=== PATIENT | female | born 1955 | race Caucasian/White ===

== ENCOUNTER → 2020-08-01 10:38 | Outpatient (CLI) | payer OTHER, SELFPAY ==
--- NOTE | ~2020-08-01 | DEXA_ITS ---
Bone Density Report Name: Rosamaria Ortez Age: 65 Sex: Female Ethnicity: White Date of : 1955 Indication: osteopenia; monitoring treatment; postmenopausal Referring Provider: Komal, Nanette Study: Bone densitometry was performed. Exam Date: August 01, 2020 Accession number: [id number] Bone Density: Region BMD T-score Z-score Classification AP Spine (L1-L4) 0.920 -1.2 0.5 Osteopenia Femoral Neck (Left) 0.628 -2.0 -0.6 Osteopenia Total Hip (Left) 0.791 -1.2 -0.1 Osteopenia Femoral Neck (Right) 0.614 -2.1 -0.7 Osteopenia Total Hip (Right) 0.731 -1.7 -0.6 Osteopenia Total Hip Mean 0.761 -1.5 -0.4 Osteopenia World Health Organization criteria for BMD impression classify patients as: Normal (T-score at or above -1.0), Osteopenia (T-score between -1.0 and -2.5), or Osteoporosis (T-score at or below -2.5). 10-year Fracture Risk: FRAX not reported because: Treated for osteoporosis Previous Exams: Region Exam Age BMD T-score BMD Change BMD Change Date g/cm2 vs Baseline vs Previous AP Spine(L1-L4) 08/01/2020 65 0.920 -1.2 -0.027* -0.023* 12/27/2017 62 0.943 -0.9 -0.005 -0.005 12/12/2012 57 0.947 -0.9 Total Hip(Left) 08/01/2020 65 0.791 -1.2 0.045* -0.004 12/27/2017 62 0.795 -1.2 0.048* 0.048* 12/12/2012 57 0.746 -1.6 Total Hip(Right) 08/01/2020 65 0.731 -1.7 0.028* 0.014 12/27/2017 62 0.716 -1.9 0.013 0.013 12/12/2012 57 0.703 -2.0 *Denotes significance at 95% confidence level, LSC for AP Spine = 0.022 g/cm2, LSC for Total Hip = 0.027 g/cm2 Clinical Information Provided by Patient: Is being treated for osteoporosis Has used the following medications: HRT (i.e. estrogen/hormone therapy), Vitamin D, MTV Patient maximum height was 69.25 Menopause Age: 52 No regular weight bearing exercise Drinks caffeinated beverages Onset of menses at age 13 Number of children 2 Impression: The patient has low bone mass, based on the Right Femoral Neck T-score. The BMD for the AP Spine(L1-L4) decreased, changing by -0.023 since the last DXA exam. Discussion: SIGNIFICANT BONE LOSS OBSERVED. Adherence to therapy (including calcium and vitamin D intake) should be assessed. If compliance is not a factor, review management and exclusion of secondary causes of bone loss. It is important to ask patients whether they are taki
--- NOTE | ~2020-08-01 | MM_ITS ---
EXAMINATION: MM screening [facility] BI w nhan HISTORY: Screening mammogram TECHNIQUE: Craniocaudal and mediolateral oblique 3-D tomosynthesis images were obtained and synthetic 2-D images were generated. CAD analysis was submitted and interpreted. COMPARISON: 01/10/2018, 12/26/2016, 12/25/2015 BREAST PARENCHYMAL COMPOSITION: There are scattered areas of fibroglandular density. FINDINGS: There is no evidence of suspicious mass, calcification, or architectural distortion to sugg est malignancy in either breast. There has been no suspicious interval change. IMPRESSION: 1. No mammographic evidence of malignancy. 2. Recommend routine screening mammography in one year. BI-RADS Category 1: Negative Reviewed, dictated and finalized at location A. MACHINE OPERATOR
== END ==
PROVIDERS: Visit Provider Nurse Practitioner
DX: Z12.31 Encounter for screening mammogram for malignant neoplasm of breast (principal); Z13.820 Encounter for screening for osteoporosis; M85.852 Other specified disorders of bone density and structure, left thigh; M85.851 Other specified disorders of bone density and structure, right thigh
CPT/HCPCS: 77063; 77067; 77080

== ENCOUNTER 2024-09-24 02:10 | Day surgery (SDC) | payer MEDICARE, OTHER, SELFPAY ==
[2024-09-16 10:43] VITALS: BMI 30.4
--- OUTSIDE RECORDS SUMMARY | 2024-09-24 02:14 | XMS_ITS | Clinical Summary ---
Author Organization [facility] Address [address] [place] [address] Care Team Providers Care Hardware Technician Name Role Phone Pipo Lopez MD Primary Care Provider [phone] Source Comments [facility],non-owned Affiliates and Associated Physician Practices is amultiple site organization consisting of ambulatory clinics and hospital sitesin [place], [place], [place] and [place]. This disclosure is being madepursuant to the Care Everywhere program and may not contain all information available regarding this patient. Last updated 18.[employer] Allergies Active Allergy Reactions Criticality Noted Date Comments Cefaclor 12/09/2016 Cephalexin 12/09/2016 Medications * Be aware that medications may not be up to date on this document. Alwaysverify current medications with the patient. AmLODIPine Besylate (NORVASC PO) Active SERTRALINE HCL PO Active buPROPion (WELLBUTRIN) 75 MG tablet Take 75 mg by mouth 2 times daily Active estriol-estradio l-progesterone (BIESTROGEN WITH PROGESTERONE) 1.5-75 mg capsule Take 1 Cap by mouth once daily Active Social History Tobacco Use Types Packs/Day Years Used Date Smoking Tobacco: Never Smokeless Tobacco: Never Comments No Sex and Gender Information Value Date Recorded Sex Assigned at Not on file Legal Sex Female 10:40 AM CDT Gender Identity Not on file Sexual Orientation Not on file Last Filed Vital Signs Vital Sign Reading Time Taken Comments Blood Pressure 112/66 12/09/2016 10:55 AM CDT Pulse 84 12/09/2016 10:55 AM CDT Temperature 37.2 C (98.9 F) 12/09/2016 10:55 AM CDT Respiratory Rate 16 12/09/2016 10:55 AM CDT Oxygen Saturation 97% 12/09/2016 10:55 AM CDT Inhaled Oxygen Concentration - - Weight 72.6 kg (160 lb) 12/09/2016 10:55 AM CDT Height 172.7 cm (5' 8 ) 12/09/2016 10:55 AM CDT Body Mass Index 24.33 12/09/2016 10:55 AM CDT Plan of Treatment Health Maintenance Due Date Last Done Comments BONE DENSITY TESTING 1955 COLOGUARD (AGES 45-75) - COL ON CA SCREENING 1955 COLON MONITORING 1955 COLONOSCOPY - COLON CA SCREENING 1955 CT COLONOGRAPHY - COLON CA SCREENING 1955 Colorectal Cancer Screening 1955 FIT - COLON CA SCREENING 1955 FLEX SIG - COLON CA SCREENING 1955 LIPID TESTING 1955 MAMMOGRAM 1955 HEPATITIS C SCREENING 03/24/1975 DTAP/TDAP/TD VACCINES (1 - Tdap) 1976 PNEUMOCOCCAL VACCINE 50+ (1 of 1 - PCV) 2007 ZOSTER VACCINE (1 of 2) 2007 COVID-19 VACCINE ( - 2023-2 5 season) 2024 DEPRESSION SCREENING 06/12/2024 INFLUENZA VACCINE (Season Ended) 2025 Respiratory Syncytial Virus (RSV) Vaccine Pt: or over 60 yrs (1 - 1-dose 75+ series) 2032 HEPATITIS B VACCINE Aged Out No longe r eligible based on patient's age to complete this topic HIB VACCINE Aged Out No longer eligi ble based on patient's age to complete this topic HPV VACCINE Aged Out No longer eligi ble based on patient's age to complete this topic MENINGOCOCCAL (Group B) VACC INE SHARED DECISION-MAKING Aged Out No longer eligibl e based on patient's age to complete this topic MENINGOCOCCAL GROUPS A/C/Y/W VACCINE Aged Out No longer eligible b ased on patient's age to complete this topic Insurance [address] [address] Care Teams Hardware Technician Relationship Specialty Start Date End Date Pipo Lopez MD [address] [facility] [address] [place] [address] PCP - General Family Medicine 12/09/16
--- OUTSIDE RECORDS SUMMARY | 2024-09-24 02:14 | XMS_ITS | Clinical Summary ---
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 Gender Identity Not on file Sexual Orientation Not on file Plan of Treatment Health Maintenance Due Date Last Done Comments Colorectal Cancer Screening Colonoscopy (10 Years) 1955 Hepatitis C 1975 DTaP, Tdap and Td Vaccines ( 1 - Tdap) 1976 Mammogram Screening 1997 Zoster Vaccines (1 of 2) 2007 Dexa Scan (General) 2022 Pneumococcal Vaccine: 50+ Ye ars (1 of 1 - PCV) 2022 COVID-19 Vaccine ( - 2023-2 5 season) 2024 RSV Immunization or 60+ Years (1 - 1-dose 75+ series) 2032 Meningococcal B Vaccine Aged Out No l onger eligible based on patient's age to complete this topic Meningococcal Vaccine Aged Out No celestino jhoan eligible based on patient's age to complete this topic RSV Immunizations Under 20 Months Aged Out No longer eligible based on patient's age to complete this topic
--- OUTSIDE RECORDS SUMMARY | 2024-09-24 02:14 | XMS_ITS | CONTINUITY OF CARE DOCUMENT ---
Author Name silva ascencio Address Unknown Organization [facility] Address [address] [place] [address] Phone [phone] Care Team Providers Care Architectural Designer Name Role Phone Aric HERNANDEZ, Angela Unavailable ELIZ SWAIN MD Unavailable ELIZ SWAIN MD Unavailable PROBLEMS Condition Status Date Provider Notes Family history of cardiovascular disease active 01/13 Nika Saini Chest pain nl stress test active Angela shah MD GERD active Angela Corbett MD Depression active Angela Corbett MD Migraine active Angela Corbett MD HTN essential active Angela Corbett MD ENCOUNTERS Date Type Provider Location Encounter Diag nosis - In-person encounter Office Visit Angela Corbett MD [facility] - In-person encounter Office Visit Angela Corbett MD [facility] - In-person encounter Office Visit Angela Corbett MD [facility] HTN essential - In-person encounter Office Visit Angela Corbett MD [facility] - In-person encounter Office Visit Angela Corbett MD [facility] Chest pain nl stress testMigraine - In-person encounter Office Visit Angela Corbett MD [facility] GERDDepression VITAL SIGNS Date Observation Value Provider Body Mass Index (Ratio) 30.41 kg/m2 Santosh Corbett MD blood pressure, diastolic 80 mm[Hg] Li nkLogic blood pressure, systolic 144 mm[Hg] Madiha kLogic blood pressure, cuff size regular Ke rri Gruenenfelder blood pressure, diastolic 80 mm[Hg] Ke rri Gruenenfelder blood pressure, systolic 144 mm[Hg] Ker ri Gruenenfelder oxygen saturation, oximetry 97 % Cass Gruenenfelder pulse rate 79 /min Cass Gruenenfe er weight E&M 200 [lb_av] Cass Gruenenfe er height E&M 68 [in_i] Cass Gruenenfe er Body Mass Index (Ratio) 27.21 kg/m2 Santosh Corbett MD blood pressure, cuff size regular Ke rri Gruenenfelder blood pressure, diastolic 78 mm[Hg] Ke rri Gruenenfelder blood pressure, systolic 116 mm[Hg] Ker ri Gruenenfeldteresita oxygen saturation, oximetry 98 % Cass Gruenenfelder respiratory rate E&M 20 /min Cass G selinenececilia pulse rate 85 /min Cass Gruenenfe er weight E&M 179 [lb_av] Cass Gruenenfe er height E&M 68 [in_i] Cass Gruenenfe er Body Mass Index (Ratio) 26.70 kg/m2 Santosh Corbett MD blood pressure, cuff size regular Cy bola Perdomo blood pressure, diastolic 68 mm[Hg] Sridhar Perdomo blood pressure, systolic 122 mm[Hg] Milagros Perdomo oxygen saturation, oximetry 97 % Ora Perdomo respiratory rate E&M 16 /min Ora Perdomo pulse rate 80 /min Ora Ulrich l weight E&M 175.6 [lb_av] Ora Sullivan ll height E&M 68 [in_i] Ora Ulrich l Body Mass Index (Ratio) 24.48 kg/m2 Santosh Corbett MD blood pressure, cuff size regular Monica mas Hager blood pressure, diastolic 70 mm[Hg] Monica mas Hager blood pressure, systolic 106 mm[Hg] Tiarra emery Madan oxygen saturation, oximetry 97 % Porsha Hager respiratory rate E&M 16 /min Porsha Hager pulse rate 77 /min Porsha Hager weight E&M 161 [lb_av] Porsha Hager height E&M 68 [in_i] Porsha Hager blood pressure, diastolic 70 mm[Hg] Vipul Matias blood pressure, systolic 118 mm[Hg] Kalyn Matias pulse rate 78 /min Radha miranda oxygen saturation, oximetry 98 % Radha Matias respiratory rate E&M 16 /min Arianna Matias Body Mass Index (Ratio) 24.93 kg/m2 Joyce Matias weight E&M 164 [lb_av] Radha miranda blood pressure, diastolic 80 mm[Hg] Me lary Ridley blood pressure, systolic 118 mm[Hg] Elvie Ridley pulse rate 78 /min Michelle Ridley oxygen saturation, oximetry 98 % Michelle Ridley respiratory rate E&M 15 /min Michelle Ridley Body Mass Index (Ratio) 24.63 kg/m2 Ratna Ridley weight E&M 162 [lb_av] Michelle Ridley height E&M 68 [in_i] Michelle Ridley ALLERGIES Allergy Name Onset Date Reaction Criticality Status BLISTEX Low Criticality active KEFLEX Low Criticality active CECLOR Low Criticality active RESULTS Date Observation Value Provider Reference Range Interpretation Location 1 hemoglobin A1C, blood, as % of total hemoglobin 5.5 % [facility] 4.8-5.6 1 lipoprotein, beta, serum, point, quantitative, calculated 130 mg/dL [facility] 0-99 High 1 very low density lipoproteins 35 mg/dL [facility] 5-40 1 HDL cholesterol, serum 42 mg/dL [facility] >39 1 triglyceride, serum, random 176 mg/dL [facility] 0-149 High 1 cholesterol, serum 207 mg/dL [facility] 100-199 High 1 alanine aminotransferase (SGPT), serum 12 1/L [facility] 0-32 1 aspartate aminotransferase (SGOT), serum 13 1/L [facility] 0-40 1 alkaline phosphatase, serum 76 1/L [facility] 39-117 1 bilirubin, serum, total 0.6 mg/dL [facility] 0.0-1.2 1 albumin/globulin ratio, serum 1.5 [facility] 1.2-2.2 1 globulin, serum 2.9 [facility] 1.5-4.5 1 albumin, serum 4.4 g/dL [facility] 3.6-4.8 1 protein, total, serum 7.3 g/dL [facility] 6.0-8.5 1 calcium, serum 9.1 mg/dL [facility] 8.7-10.3 1 carbon dioxide, venous blood 21 mmol/L [facility] 20-29 1 chloride, serum 103 mmol/L [facility] 96-106 1 potassium, serum 4.1 mmol/L [facility] 3.5-5.2 1 sodium, serum 140 mmol/L [facility] 941-520 1147/08/0 1 urea nitrogen/creatinine ratio, serum 17 [facility] 12-28 1 eGFR if 89 mL/min/{1 .73_m2} [facility] >59 1 eGFR if not 77 mL/min/{1 .73_m2} [facility] >59 1 creatinine, serum 0.83 mg/dL [facility] 0.57-1.00 1 urea nitrogen, blood 14 mg/dL [facility] 8-27 1 blood glucose, random 93 mg/dL [facility] 65-99 1 basophil count, absolute 0.0 x10E3/uL [facility] 0.0-0.2 1 Eosinophil Absolute Count 0.2 X10E3/UL [facility] 0.0-0.4 1 monocyte count, blood, automated 0.3 X10E3/UL [facility] 0.1-0.9 1 lymphocyte count, blood, automated 1.6 X10E3/UL [facility] 0.7-3.1 1 Absolute Neutrophils 3.4 X10E3/UL [facility] 1.4-7.0 1 basophils as percent of blood leukocytes 1 % [facility] Not Estab. 1 eosinophils as percent of blood leukocytes 3 % [facility] Not Estab. 1 monocytes as percent of blood leukocytes 5 % [facility] Not Estab. 1 lymphocytes as percent of blood leukocytes 28 % [facility] Not Estab. 1 neutrophils as percent of blood leukocytes 63 % [facility] Not Estab. 1 platelet count 235 X10E3/UL [facility] 734-010 3819/08/0 1 red blood cell distribution width 13.5 % [facility] 12.3-15.4 1 mean corpuscular hemoglobin concentration, RBC 34.6 G/DL [facility] 31.5-35.7 1 mean corpuscular hemoglobin, RBC 32.3 pg [facility] 26.6-33.0 1 mean corpuscular volume, RBC 93 fL [facility] 79-97 1 hematocrit, blood 40.7 % [facility] 34.0-46.6 1 hemoglobin, blood 14.1 g/dL [facility] 11.1-15.9 1 erythrocyte (RBC) count 4.37 X10E6/UL [facility] 3.77-5.28 1 leukocyte count, blood 5.5 [facility] HISTORY OF MEDICATION USE Medication Status Instructions Dates Provider Indications Com ments Ubrelvy 100 mg tablet active TAKE ONE TABLET BY MOUTH AT THE START OF MIGRAINE, MAY REPEAT IN 2 HOURS IF NO RELIEF. NO MORE THAN 2 TABS PER 24 HOURS Cass Jenkins buspirone 10 mg tablet active TAKE 1 TABLET BY MOUTH TWICE DAILY Cass Jenkins esomeprazole magnesium 40 mg capsule,delayed release(DR/EC) active TAKE 1 CAPSULE BY MOUTH ONCE DAILY NEEDED Cass Jenkins valacyclovir 1 gram tablet active TAKE 2 TABLETS BY MOUTH EVERY 12 HOURS FOR 2 DAYS NEEDED Cass Jenkins medroxyprogesterone 2.5 mg tablet active TAKE 1 TABLET BY MOUTH ONCE DAILY Cass Jenkins rosuvastatin 40 mg tablet active TAKE 1 TABLET BY MOUTH ONCE DAILY Cass Jenkins Lipitor 10 mg tablet completed 1 tablet once a day 02/19 - 09/10 Cass Jenkins VITAMIN D TABLET completed Take 2 twice a day 02/19 - 09/10 Cass Jenkins bupropion HCl 150 mg tablet sustained-release 12 hr completed Take 1 tablet once a day 12/18 - 09/10 Cass Jenkins amlodipine 2.5 mg tablet active Take 1 tablet by mouth once a day Cass Jenkins AMLODIPINE BESYLATE 2.5 MG ORAL TABLET completed take one tab daily 02/08 - Angela Corbett MD changed from Ensenda d/t insurance preference OMEPRAZOLE 20 MG ORAL CAPSULE DELAYED RELEASE completed po daily 02/08 - 01/06 Radhajacinta Matias alprazolam 0.25 mg tablet active as needed 02/08 Cass Kuoalanateresita Ames's Extra Strength 500-325-65 mg powder in packet completed as needed 02/08 - 09/10 Cass Gregory IMITREX TABLET completed as needed 02/08 - 12/18 Orabenny Perdomo MEDROXYPROGESTERONE ACETATE TABLET completed once a day 02/08 - 09/10 Cass Gregory estradiol 1 mg tablet active once a day 02/08 Cass Gregory Celexa 40 mg tablet active once a day 02/08 Cass Gregory SOCIAL HISTORY Date Observation Value Provider smoking status Never smoker Antoine Hendrickson social history E&M S moking History: Alirio garrett has never smoked. Angela Corbett MD social history reviewed E&M revi ewed - no changes required Angela Corbett MD smoking status Never smoker Cass cerda number of grandchildren Angela Corbett MD T collins Corbett MD social history E&M S moking History: Alirio garrett has never smoked. Angela Corbett MD social history reviewed E&M revi ewed - no changes required Angela Corbett MD smoking status Never smoker Ora curran social history reviewed E&M revi ewed - no changes required Angela Corbett MD smoking status Never smoker Porsha Hager social history reviewed E&M revi ewed - no changes required Angela Corbett MD smoking status Never smoker Radha Quiros social history reviewed E&M revi ewed - no changes required Angela Corbett MD smoking status Never smoker Michelle workman FAMILY HISTORY Family Member Condition Mother Family History Unkno wn Father Family History of Co ronary Artery Disease: INSURANCE PROVIDERS Payer name Policy type / Coverage type Gardenia red libertarian ID [employer] MEDICARE [place] PPO Medicare [id number] ADVANCE DIRECTIVES Name Date DISCUSSED - NO DECISION MADE TREATMENT PLAN Date Name Performer Cardiology: H er updated medication list for this problem includes: Esomeprazole Magnesium 40 Mg Capsule,delayed Release(dr/ec) (Esomeprazole magnesium) ..... Take 1 capsule by mouth once daily as needed Angela Corbett MD Cardiology: O rders: S tress Exercise Cardiolite (CPT-31200) C T, Coronary Calcium Score (CPT-11677) Angela Corbett MD Cardiology: B P today: 144/80 P rior BP: 116/78 (02/19/2018) Labs Reviewed: C reat: 0.83 (01/10/2018) C hol: 207 (01/10/2018) HDL: 42 (01/10/2018) LDL: 130 (01/10/2018) T (01/10/2018) Her updated medication list for this problem includes: Amlodipine 2.5 Mg Tablet (Amlodipine) ..... Take 1 tablet by mouth once a day Orders: E KG (CPT-33289) S tress Exercise Cardiolite (CPT-06587) C T, Coronary Calcium Score (CPT-21408) Angela Corbett MD Cardiology: O rders: S tress Exercise Cardiolite (CPT-13862) C T, Coronary Calcium Score (CPT-43148) Her updated medication list for this problem includes: Amlodipine 2.5 Mg Tablet (Amlodipine) ..... Take 1 tablet by mouth once a day Angela Corbett MD Cardiology Follow u p Angela shah MD Cardiology Follow u p Angela shah MD Cardiology Follow u p Angela shah MD Cardiology Follow u p Calvinichapin shah MD Cardiology follow up Angela greene MD Cardiology follow up Angela greene MD Cardiology follow up Angela greene MD Cardiology Follow up Angela greene MD Cardiology Follow up Angela greene MD Cardiology Follow up Angela greene MD Cardiology Follow up Angela greene MD Cardiology Angela Corbett MD Cardiology Angela Corbett MD Cardiology Angela Corbett MD Cardiology Angela Corbett MD Cardiology Angela Corbett MD Cardiology Angela Corbett MD Date Name CT, Coronary Calcium Score Stress Exercise Card iolite STR - Nuclear HISTORY OF PROCEDURES Procedure Date Procedure Name Provider Procedure Notes S tatus EKG Angela Corbett MD completed Cardiolite, 2 units Angela oCrbett MD completed SPECT Images Angela Corbett MD complet ed Stress EKG Darian Delgado MD completed EKG Angela Corbett MD completed EKG Angela Corbett MD completed SNOMED-CT: 40299715 Physical Exam, Performed: Pulse Exam of Foot Angela Corbett MD completed SNOMED-CT: 561057457 948411 Current Medications Documented Angela Corbett MD completed SNOMED-CT: 37116539 Physical Exam, Performed: Pulse Exam of Foot Angela Corbett MD completed SNOMED-CT: 232482253 862181 Current Medications Documented Angela Corbett MD completed SNOMED-CT: 50710822 Physical Exam, Performed: Pulse Exam of Foot Angela Corbett MD completed EKG Angela Corbett MD completed SNOMED-CT: 488254473 641044 Current Medications Documented Angela Corbett MD completed Stress EKG Darian Delgado MD completed Cardiolite, 2 units Angela Corbett MD completed SPECT Images Angela Corbett MD complet ed
--- OUTSIDE RECORDS SUMMARY | 2024-09-24 02:14 | XMS_ITS | Continuity of Care Document ---
Author Organization [facility] Address [address] [place] [address] Phone Care Team Providers Care Phlebotomy Coordinator Name Role Phone Pipo Lopez MD Unavailable Unavailable Allergies, Adverse Reactions, Alerts Substance Reaction Status Criticality phenol Active No Information petrolatum,hydrophilic Active No In formation padimate O Active No Information oxybenzone Active No Information octyl salicylate Active No Informat ion octinoxate Active No Information meradimate Active No Information menthol Active No Information homosalate Active No Information HERBAL COMPLEX NO.57 Active No Info rmation dimethicone Active No Information chamomile flower Active No Informat ion camphor Active No Information ALOE VERA EXTRACT Active No Informa tion allantoin Active No Information CEPHALEXIN MONOHYDRATE Active No In formation cefaclor Active No Information Medications Medication Instructions Dosage Effective Dates (start - stop) Status Comments acyclovir 400 mg tablet take 1 Tablet by oral route 3 times every day 400 MG - Active Celexa 40 mg tablet take 1 tablet (40MG) by oral route every day 40 MG - Active Procedures Procedure Date PREV VISIT, EST, AGE 40-64 OFFICE/OUTPATIENT VISIT, EST OFFICE/OUTPATIENT VISIT, EST PREV VISIT, NEW, AGE 40-64 Advance Directives Directive Yes / No Effective Date File Name No Information Encounters Encounter Description Practice Location Reason(s) For Visit Diagnoses Date Provider Providers Copied on Encounter [facility], [address], [place], [id number], [place] tel:[phone] [facility] No Information 0-201 6 John Chung [address], [address], [place], [place], [address] , [place]. tel:[phone] [facility], [address], [place], [place], [address], [place] [phone] [facility] No Information 5 John Foss. [address], [place], [place], [address] , [place]. tel:[phone] PREV VISIT, EST, AGE 40-64 [facility], [address], [place], [place], [address], [place] [phone] [facility] PHysical (chief complaint) ROUTINE MEDICAL EXAM 5 John Chung [address], [place], [place], [address] , [place]. tel:[phone] Referring Provider: Ana Coreas [address], [place], [place], [address]. tel:[phone] OFFICE/OUTPA TIENT VISIT, EST [facility], [address], [place], [place], [address], [place] [phone] [facility] jaw pain (chief complaint) headache (chief complaint) cold sore (chief complaint) HeadacheGeneralized anxiety disorderHerpes simplex without mention of complication 4 John Chung [address], [place], [place], [address] , [place]. tel:[phone] Referring Provider: Ana Coreas [address], [place], [place], [address]. tel:[phone] OFFICE/OUTPA TIENT VISIT, EST [facility], [address], [place], [place], [address], [place] tel:[phone] [facility] anxiety (chief complaint) headache (chief complaint) osteopenia (chief complaint) mole on back (chief complaint) DepressionHeadacheD isorder of bone and cartilage, unspecifiedNevus, non-neoplastic 4 John Perez [address], [place], [place], [address] , [place]. [phone] Referring Provider: Pipo Lopez, [address], [place], [place], [address]. tel:[phone] PREV VISIT, NEW, AGE 40-64 [facility], [address], [place], [place], [address], [place] tel:[phone] [facility] Medicine Physical (chief complaint) Routine Medical ExamRoutine Medical Exam 4 John Foss. [address], [place], [place], [address] , [place]. [phone] Family History Family Member Type Diagnosis Age At Onset Brother Problem (finding) primary lateral scerosi s Father Problem (finding) Hypertension Father Problem (finding) Coronary artery disease Mother Problem (finding) Hypertension Payers Payer name Insurance type Covered green party ID Authoriza tion(s) No Information Social History Type Description Quantity Date Captured Comments Alcohol Use Details Unknown Caffeine Use Details Unknown Tobacco Use Status No Information Smoking Status No Information Sex Female Chief Complaint And Reason For Visit No Information Plan Of Treatment Date Type Action Status Goal Tdap. Due on due Goal Td vaccine. Due on 15 due Goal Sigmoidoscopy. Due on due Goal Pap/HPV testing. Due on due Goal Influenza vaccine. Due on due Goal FOBT. Due on due Goal Depression screening. Due on due Goal Colonoscopy. Due on 015 due Goal Mammogram. Due on 5 due Referral Ordered: MRI BRAIN W/O & W/DYE ordered Referral Ordered: CARDIOVASCULAR STRESS TEST ordered History Of Present Illness Encounter Date Complaint History Of Prese nt Illness PHysical Pt needs annual physical. Pt has chronic pressure headache. Pt denies any photophobia or nausea with headache. Pt has headache once every 2-3 weeks. Pt does not think amitriptyline helps so she stopped it. Pt was given imitrex which helps sometimes Pt was given imitrex by [employer]. Pt had noramal MRI of brain last year. Pt has intermittent fever blisters and she wants valtrex. Pt denies any active infection. 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 PT denies any suicidal thought Instructions Date Instruction Additional Infor raheem No Information Assessments Type Assessment Date No Information
--- OUTSIDE RECORDS SUMMARY | 2024-09-24 02:14 | XMS_ITS | Continuity of Care Document ---
Author Organization [facility] Address [address] [facility] [place] [address] Phone Care Team Providers Care Fine Craft Artist Name Role Phone Edgar OD, Steve Unavailable Unavailable Procedures Procedure Date Eye Exam & Treatment Refraction No Charge Contact Lens Check No Charge Contact Lens Check Eye Exam & Treatment Refraction Eye Exam, New Patient Advance Directives Directive Yes / No Effective Date File Name No Information Encounters Encounter Description Practice Location Reason(s) For Visit Diagnoses Date Provider Providers Copied on Encounter [facility], [address] [place] [address] [address], [place], [place], [address], tel:[phone] [facility] No Information Apr-0 8-201 0 Edgar OD Steve. [address] , [address], [place], [place], [facility], [place]. tel:[phone] [facility], [address] [place] [address] [address], [place], [place], [address], [place] tel:[phone] [facility] No Information Oct-0 8-200 8 Edgar OD Steve. [address] , [address], [place], [place], [facility], [place]. tel:[phone] [facility], [address] [place] [address] [address], [place], [place], [address], [place] tel:[phone] [facility] No Information Oct-0 1-200 8 Edgar OD Steve. [address] [facility] , [address], [place], [address], [place]. tel:[phone] [facility], [address] [place] [address] [address], [place], [place], [address], tel:[phone] [facility] No Information Sep-1 0-200 8 Edgar OD Steve. [address] [facility] , [address], [place], [place], [facility], [place]. tel:[phone] [facility], [address], [place], [place], [address], tel:[phone] [facility] No Information Aug-0 2-200 7 Edgar OD Steve. [facility] [facility] , [address], [place], [address], [place]. tel:[phone] Family History Family Member Type Diagnosis Age At Onset No Information Payers Payer name Insurance type Covered libertarian ID Maranda soto(s) Medicaid [facility] [id number] Social History Type Description Quantity Date Captured Comments Sex Female Smoking Status No Information Chief Complaint And Reason For Visit No Information Reason For Referral Reason For Referral No Information History Of Present Illness Encounter Date Complaint History Of Prese nt Illness No Information Functional Status Date Functional Assessmen t No Information Instructions Date Instruction Additional Infor mation No Information Assessments Type Assessment Date No Information Patient Care Teams Name Effective Dates (start - stop) Status Members No Information
--- OUTSIDE RECORDS SUMMARY | 2024-09-24 02:15 | XMS_ITS | Data Portability ---
Author Organization [place] - [facility] [employer], Main Office Address [address] [place] [address] Assessment Encounter Date Assessment Date Assessment LastModified by Organization Details LastModified Time 10/03/2022 10/03/2022 Cscope- in 2018 at [place], normal- repeat 01/2028 [facility]- PREHEMMER- Genna Mammogram/DEXA- with PREHEMMER Call office if worse, ER if life threatening illness RTC 4 months She voices understanding of plan and agrees [email or web address] Not available 10/01/2022 21:29:29 02/07/2023 02/07/2023 Cscope- in 2018 at [place], normal- repeat 01/2028 [facility]- PREHEMMER- Genna Mammogram/DEXA- with PREHEMMER Call office if worse, ER if life threatening illness RTC 6 months and PRN- annual physical due end of May/early Jun She voices understanding of plan and agrees [email or web address] Not available 02/07/2023 17:01:20 02/27/2024 02/27/2024 08/23/2023: VIT D 23.1 Gluc 109 TG 183 MCV 99.8 Not available 02/25/2024 17:19:55 08/20/2024 08/20/2024 08/23/2023: VIT D 23.1 Gluc 109 TG 183 MCV 99.8 04/03/2024: Gluc 118 TG 166 MCV 99.1 Not available 08/20/2024 10:37:46 Plan of Treatment Reminders Order Date Submit Date Provider Last Modified By Organization Details Last Modified Time Details Appointments Any 15 2024 09:15A Louise love MD Not available Not available Not available Lab lipid panel, serum 2024 025 [facility] (Lab), [address] [place], [address], 08/22/2024 12:37:19 CMP, serum or plasma 2024 025 [facility] (Lab), [address] [place], [address], 08/22/2024 12:37:25 CBC w/ auto diff 2024 025 [facility] (Lab), [address] [place], [address], 08/22/2024 12:35:04 TSH + free T4, serum [address] (Lab), [address] [place], [address], 08/20/2024 10:39:22 vitamin D, 25-hydrox y, total, serum [address] (Lab), [address] [place], [address], 08/20/2024 10:39:21 lipid panel, serum 2023 024 [facility] (Lab), [address] [place], [address], 04/03/2024 13:16:03 CMP, serum or plasma 2023 024 [facility] (Lab), [address] [place], [address], 04/03/2024 13:16:07 CBC w/ auto diff 2023 024 [facility] (Lab), [address] [place], [address], 04/03/2024 12:25:58 TSH + free T4, serum [address] (Lab), [address] [place], [address], 09/16/2024 12:38:41 vitamin D, 25-hydrox y, total, serum [address] (Lab), [address] [place], [address], 09/16/2024 12:38:40 lipid panel, serum 2023 024 [facility], [address] [place], [address], 08/23/2023 12:19:11 CMP, serum or plasma 2023 024 [facility], [address] [place], [address], 08/23/2023 12:19:21 CBC w/ auto diff 2023 024 [facility], [address] [place], [address], 08/23/2023 11:59:44 TSH + free T4, serum [address], [address] [place], [address], 08/29/2023 11:43:02 vitamin D, 25-hydrox y, total, serum [address], [address] [place], [address], 08/29/2023 11:43:02 Referral orthopedi c surgeon referral - Please call patient to schedule an appointme nt. Thank you. 2024 025 [email or web address] Paolo Dhaliwal MD, [address], [address], [place], [address], 09/17/2024 08:54:09 gynecolog ist referral - Please call patient to schedule an appointme nt. Thank you. 2024 025 [email or web address] Yessy Vail, [address], [address], [place], [address], Ph [phone] 09/17/2024 08:53:53 cardiolog ist referral - Please call patient to schedule an appointme nt. Thank you. 2024 025 [email or web address] [place], [address] [address], [address], [place], [address], 09/17/2024 08:53:54 podiatris t referral - Please call patient to schedule an appointme nt. Thank you. 2024 025 Jose Roberto Vaughn DPM, [address], [address], [place], [address], 09/17/2024 08:53:55 orthopedi c surgeon referral - Please call patient to schedule. 2023 024 [email or web address] 2 [facility], [address] [facility] [address], [place], [address], 04/03/2024 10:34:16 gynecolog ist referral - Please call patient to schedule. 2023 024 [email or web address] Yessy Vail, [address], [place], [address], Ph [phone] 04/01/2024 15:42:53 cardiolog ist referral - Please call patient to schedule. 2023 024 [place], [address] [address], [address], [place], [address], 09/10/2024 15:37:05 podiatris t referral - Please call patient to schedule. 2023 024 2 Jose Roberto Vaughn DPM, [address] [facility], [address], [place], [address], 04/03/2024 10:34:16 gynecolog ist referral 2023 024 [email or web address] Yessy Estrellita óGmezGenna, [address], [place], [address], Ph [phone] 03/18/2024 10:41:53 cardiolog ist referral 2023 024 [email or web address] [place], [address] [facility], [address], [place], [address], 03/18/2024 10:41:54 Procedures upper endoscopy procedure (EGD) (PROC) - Please call patient to schedule an appointme nt. Thank you. 2024 025 [email or web address] Steve Rojas MD, [address] [facility] [address], [address], [place], [address], 09/17/2024 12:39:50 colonosco py screening (PROC) - Please call patient to schedule. 2023 024 [email or web address] Steve Rojas MD, [address] [facility] [address], [address], [place], [address], 04/01/2024 15:41:52 upper endoscopy procedure (EGD) (PROC) - Please call patient to schedule. 2023 024 [email or web address] Steve Rojas MD, [address] [facility] [address], [address], [place], [address], 04/01/2024 15:42:17 upper endoscopy procedure (EGD) (PROC) 2023 024 [email or web address] Steve Rojas MD, [address] [facility] [address], [address], [place], [address], 03/18/2024 10:42:15 Surgeries None recorded. Imaging MAMMO, screening , digital, bilateral - Please call patient to schedule. 2024 025 [facility] ([facility]), [address] [place], [address], 09/16/2024 15:51:43 US, thyroid - Please call patient to schedule. 2023 024 [email or web address] [facility] ([facility]), [address] [place], [address], 2024 20:50:31 MAMMO, screening , digital, bilateral 2023 024 [email or web address] 5 [facility] ([facility]), [address] [place], [address], 10/03/2023 08:40:01 DEXA, axial skeleton 2023 024 [facility] ([facility]), [address] [place], [address], 09/15/2023 06:34:25 US, thyroid [email or web address], [address] [address], [place], [address], 07/07/2023 17:48:51 Medication Orders Ubrelvy 100 mg tablet 2024 025 [facility], [address] [place] [address], [address], 08/20/2024 10:26:17 buspirone 10 mg tablet [email or web address] [facility], [address] [place], [address], 02/27/2024 10:18:01 Nexium 40 mg capsule,d elayed release 2023 024 [facility], [address] [facility], [place], [address], 08/22/2023 17:31:09 fluticaso ne propionat e 50 mcg/actua tion nasal spray,[facility] pension 2022 023 [email or web address] [facility], [address] [place], [address], 02/07/2023 16:48:10 Patient TargetsNo targets recorded. Patient InstructionsNo instructions recorded. Reason for Referral Residential Door Installer Referral for Gy necologic examination Referring Physician: Anna Lanza Internal Medicine, Encounter Date: 08/22/2023 Carrier Driver Referral for Es sential hypertension Referring Physician: Anna Lanza Internal Medicine, Encounter Date: 08/22/2023 Residential Door Installer Referral for Gy necologic examination Please call patient to schedule. Referring Physician: Dilcia Black Medicine, Encounter Date: 02/27/2024 Carrier Driver Referral for Es sential hypertension Please call patient to schedule. Referring Physician: Anna Lanza Internal Medicine, Encounter Date: 02/27/2024 Dental Receptionist Referral for Pain in left foot Please call patient to schedule. Referring Physician: Dilcia Black Medicine, Encounter Date: 02/27/2024 Orthopedic Surgeon Referral for Pain of left knee joint Please call patient to schedule. Referring Physician: Anna Lanza Internal Medicine, Encounter Date: 02/27/2024 Residential Door Installer Referral for Gy necologic examination Please call patient to schedule an appointment. Thank you. Referring Physician: Dilcia Black Medicine, Encounter Date: 08/20/2024 Carrier Driver Referral for Es sential hypertension Please call patient to schedule an appointment. Thank you. Referring Physician: Dilcia Black Medicine, Encounter Date: 08/20/2024 Dental Receptionist Referral for Pain in left foot Please call patient to schedule an appointment. Thank you. Referring Physician: Anna Lanza, Internal Medicine, Encounter Date: 08/20/2024 Orthopedic Surgeon Referral for Pain of left knee joint Please call patient to schedule an appointment. Thank you. Referring Physician: Anna Lanza Internal Medicine, Encounter Date: 08/20/2024 Results Created Date Observation Date Name Description Value Unit Range Abnormal Flag Note LastModifiedBy Organization Detail LastModifiedTime 08/23/19 24 08/23/2023 CBC/C OMPLE TE BLD COUNT W/DIF F white blood cells 5.7 x10'3 /uL 4.2-10 .8 Not Available [facility] (Lab) [address] [place], [address], 08/23/2023 11:59:44 08/23/19 24 08/23/2023 CBC/C OMPLE TE BLD COUNT W/DIF F red blood cells 4.28 x10'6 /uL 3.80-5 .20 Not Available [facility] (Lab) [address] [place], [address], 08/23/2023 11:59:44 08/23/19 24 08/23/2023 CBC/C OMPLE TE BLD COUNT W/DIF F hemoglobin 13.8 g/dL 12.0-1 5.6 Not Available [facility] (Lab) [address] [place], [address], 08/23/2023 11:59:44 08/23/19 24 08/23/2023 CBC/C OMPLE TE BLD COUNT W/DIF F hematocrit 42.7 % 35.7-4 5.7 Not Available [facility] (Lab) [address] [place], [address], 08/23/2023 11:59:44 08/23/19 24 08/23/2023 CBC/C OMPLE TE BLD COUNT W/DIF F mean red cell volume 99.8 fL 82.0-9 9.0 high Not Available [facility] (Lab) [address] [place], [address], 08/23/2023 11:59:44 08/23/19 24 08/23/2023 CBC/C OMPLE TE BLD COUNT W/DIF F mean red cell hemoglobin 32.2 pg 27.0-3 3.0 Not Available [facility] (Lab) [address] [place], [address], 08/23/2023 11:59:44 08/23/19 24 08/23/2023 CBC/C OMPLE TE BLD COUNT W/DIF F mean RBC HGB concentratio n 32.3 g/dL 31.0-3 6.0 Not Available [facility] (Lab) [address] [place], [address], 08/23/2023 11:59:44 08/23/19 24 08/23/2023 CBC/C OMPLE TE BLD COUNT W/DIF F red cell distribution width 13.3 % 11.8-1 5.5 Not Available [facility] (Lab) [address] [place], [address], 08/23/2023 11:59:44 08/23/19 24 08/23/2023 CBC/C OMPLE TE BLD COUNT W/DIF F platelets 232 x10'3 /uL 150-40 0 Not Available [facility] (Lab) [address] [place], [address], 08/23/2023 11:59:44 08/23/19 24 08/23/2023 CBC/C OMPLE TE BLD COUNT W/DIF F mean platelet volume 10.1 fL 9.0-12 .4 Not Available [facility] (Lab) [address] [place], [address], 08/23/2023 11:59:44 08/23/19 24 08/23/2023 CBC/C OMPLE TE BLD COUNT W/DIF F neutrophils 59.2 % 39.0-7 2.0 Not Available [facility] (Lab) [address] [place], [address], 08/23/2023 11:59:44 08/23/19 24 08/23/2023 CBC/C OMPLE TE BLD COUNT W/DIF F lymphocytes 27.7 % 16.0-4 7.0 Not Available [facility] (Lab) [address] [place], [address], 08/23/2023 11:59:44 08/23/19 24 08/23/2023 CBC/C OMPLE TE BLD COUNT W/DIF F monocytes 7.1 % 5.0-12 .0 Not Available [facility] (Lab) [address] [place], [address], 08/23/2023 11:59:44 08/23/19 24 08/23/2023 CBC/C OMPLE TE BLD COUNT W/DIF F eosinophils 4.9 % 1.0-7. 0 Not Available [facility] (Lab) [address] [place], [address], 08/23/2023 11:59:44 08/23/19 24 08/23/2023 CBC/C OMPLE TE BLD COUNT W/DIF F basophils 0.9 % 0.0-2. 0 Not Available [facility] (Lab) [address] [place], [address], 08/23/2023 11:59:44 08/23/19 24 08/23/2023 CBC/C OMPLE TE BLD COUNT W/DIF F immature granulocytes 0.2 % 0.00-0 .50 Not Available [facility] (Lab) [address] [place], [address], 08/23/2023 11:59:44 08/23/19 24 08/23/2023 CBC/C OMPLE TE BLD COUNT W/DIF F neutrophils, absolute count 3.36 x10'3 /uL 1.5-8. 0 Not Available [facility] (Lab) [address] [place], [address], 08/23/2023 11:59:44 08/23/19 24 08/23/2023 CBC/C OMPLE TE BLD COUNT W/DIF F lymphocytes, absolute count 1.57 x10'3 /uL 1.07-3 .43 Not Available [facility] (Lab) [address] [place], [address], 08/23/2023 11:59:44 08/23/19 24 08/23/2023 CBC/C OMPLE TE BLD COUNT W/DIF F monocytes, absolute count 0.40 x10'3 /uL 0.29-0 .99 Not Available [facility] (Lab) [address] [place], [address], 08/23/2023 11:59:44 08/23/19 24 08/23/2023 CBC/C OMPLE TE BLD COUNT W/DIF F eosinophils, absolute count 0.28 x10'3 /uL 0.02-0 .53 Not Available [facility] (Lab) [address] [place], [address], 08/23/2023 11:59:44 08/23/19 24 08/23/2023 CBC/C OMPLE TE BLD COUNT W/DIF F basophils, absolute count 0.05 x10'3 /uL 0.01-0 .08 Not Available [facility] (Lab) [address] [place], [address], 08/23/2023 11:59:44 08/23/19 24 08/23/2023 CBC/C OMPLE TE BLD COUNT W/DIF F immature granulocytes ,absolute 0.01 x10'3 /uL 0.00-0 .05 Not Available [facility] (Lab) [address] [place], [address], 08/23/2023 11:59:44 08/23/19 24 08/23/2023 CBC/C OMPLE TE BLD COUNT W/DIF F nucleated red blood cells 0.0 % -0 Not Available [facility] (Lab) [address] [place], [address], 08/23/2023 11:59:44 08/23/19 24 08/23/2023 CBC/C OMPLE TE BLD COUNT W/DIF F NRBC# 0.00 x10'3 /uL Not Available [facility] (Lab) [address] [place], [address], 08/23/2023 11:59:44 08/23/19 24 08/23/2023 LIPID PANEL cholesterol 192 mg/dL 140-19 9 NIH ANDRESSA NSUS RECOM MENDA TION FOR IRIS STERO L: ADULT CHILD LOW RISK: <200 <170 BORDE RLINE : <200- 239 ----- HIGH RISK: >240 >200 Not Available [facility] (Lab) [address] [place], [address], 08/23/2023 12:19:11 08/23/19 24 08/23/2023 LIPID PANEL triglyceride s 183 mg/dL 0-150 high NIH ANDRESSA NSUS REPOR T RECOM MENDA TION FOR TRIGL YCERI GERALDINE: ADULT CHILD LOW RISK: <150 ----- BODER LINE: 150-1 99 ----- HIGH RISK: >200 ----- Not Available [facility] (Lab) [address] [place], [address], 08/23/2023 12:19:11 08/23/19 24 08/23/2023 LIPID PANEL HDL cholesterol 42 mg/dL 40- Not Available [facility] (Lab) [address] [place], [address], 08/23/2023 12:19:11 08/23/19 24 08/23/2023 LIPID PANEL LDL cholesterol, calculated 113 mg/dL 0-130 NIH ANDRESSA NSUS REPOR T RECOM MENDA TIONS FOR LDL: ADULT CHILD LOW RISK <130 <110 (OPTI MAL LDL) <100 ----- BORDE RLINE : 130-1 59 ----- HIGH RISK: >160 >130 A TRIGL YCERI DE RESUL T >400 INVAL IDATE S THE CALCU LATIO N FOR LDL FRACT IONAT ION - THE LDL RESUL T WILL NOT BE REPOR ABIMBOLA. Not Available [facility] (Lab) [address] [place], [address], 08/23/2023 12:19:11 08/23/19 24 08/23/2023 COMPR EHENS JENNIFER METAB OLIC PANEL sodium 140 mmol/ L 137-14 5 Not Available [facility] (Lab) [address] [place], [address], 08/23/2023 12:19:20 08/23/19 24 08/23/2023 COMPR EHENS JENNIFER METAB OLIC PANEL potassium 4.1 mmol/ L 3.5-5. 1 Not Available [facility] (Lab) [address] [place], [address], 08/23/2023 12:19:20 08/23/19 24 08/23/2023 COMPR EHENS JENNIFER METAB OLIC PANEL chloride 111 mmol/ L 98-107 high Not Available [facility] (Lab) [address] [place], [address], 08/23/2023 12:19:20 08/23/19 24 08/23/2023 COMPR EHENS JENNIFER METAB OLIC PANEL carbon dioxide 25 mmol/ L 22-30 Not Available [facility] (Lab) [address] [place], [address], 08/23/2023 12:19:20 08/23/19 24 08/23/2023 COMPR EHENS JENNIFER METAB OLIC PANEL anion gap 8.1 mmol/ L 14-22 low Not Available [facility] (Lab) [address] [place], [address], 08/23/2023 12:19:20 08/23/19 24 08/23/2023 COMPR EHENS JENNIFER METAB OLIC PANEL glucose 109 mg/dL 70-99 high Not Available [facility] (Lab) [address] [place], [address], 08/23/2023 12:19:20 08/23/19 24 08/23/2023 COMPR EHENS JENNIFER METAB OLIC PANEL BUN 16 mg/dL 8-19 Not Available [facility] (Lab) [address] [place], [address], 08/23/2023 12:19:20 08/23/19 24 08/23/2023 COMPR EHENS JENNIFER METAB OLIC PANEL creatinine 0.72 mg/dL 0.66-1 .25 Not Available [facility] (Lab) [address] [place], [address], 08/23/2023 12:19:20 08/23/19 24 08/23/2023 COMPR EHENS JENNIFER METAB OLIC PANEL GFR >60 Refer ence Range : [place] ge GFR Healt hy Adult : >60 mL/mi n/1.7 3 m2 Chron ic Kidne y Disea se: 15-60 mL/mi n/1.7 3 m2 Kidne y Failu re: <15/m L/min /1.73 m2 www.n iddk. nih.g ov The MDRD study equat ion has not been valid ated in child claudia <18 years of age; pregn ant women ; the elder ly >85 years of age; or in some racia l or ethni c subgr oups, such as Hispa nics. Outsi de the valid ated neno eters , estim ated GFR is less accur ate, requi ring clini daria judgm ent on a case- by-ca se basis . Clini daria inter preta tion for other races and ages must be made by the clini santiago. The MDRD study equat ion has not been valid ated for the evalu ation of serum creat inine relat ed to nutri sheeba l statu s or medic ation usage . For perso ns <18 years of age, a pedia tric GFR calcu lator is avail able on the [facility] websi te: https ://latosha huff.alexandru lara.o rg/pr ofess ional s/kdo qi/gf r_cal culat or Not Available [facility] (Lab) [address] [place], [address], 08/23/2023 12:19:20 08/23/19 24 08/23/2023 COMPR EHENS JENNIFER METAB OLIC PANEL alkaline phosphatase 88 U/L 38-126 Not Available [facility] (Lab) [address] [place], [address], 08/23/2023 12:19:20 08/23/19 24 08/23/2023 COMPR EHENS JENNIFER METAB OLIC PANEL alanine aminotransfe rase 20 U/L 0-35 Not Available [facility] (Lab) [address] [place], [address], 08/23/2023 12:19:20 08/23/19 24 08/23/2023 COMPR EHENS JENNIFER METAB OLIC PANEL aspartate aminotransfe rase 23 U/L 15-37 Not Available [facility] (Lab) [address] [place], [address], 08/23/2023 12:19:20 08/23/19 24 08/23/2023 COMPR EHENS JENNIFER METAB OLIC PANEL bilirubin, total 0.80 mg/dL 0.20-1 .30 Not Available [facility] (Lab) [address] [place], [address], 08/23/2023 12:19:20 08/23/19 24 08/23/2023 COMPR EHENS JENNIFER METAB OLIC PANEL calcium 9.0 mg/dL 8.4-10 .2 Not Available [facility] (Lab) [address] [place], [address], 08/23/2023 12:19:20 08/23/19 24 08/23/2023 COMPR EHENS JENNIFER METAB OLIC PANEL total protein 7.1 g/dL 6.3-8. 2 Not Available [facility] (Lab) [address] [place], [address], 08/23/2023 12:19:20 08/23/19 24 08/23/2023 COMPR EHENS JENNIFER METAB OLIC PANEL albumin 3.9 g/dL 3.0-4. 4 Not Available [facility] (Lab) [address] [place], [address], 08/23/2023 12:19:20 08/23/19 24 08/23/2023 COMPR EHENS JENNIFER METAB OLIC PANEL globulin 3.2 g/dL 2.6-4. 2 Not Available [facility] (Lab) [address] [place], [address], 08/23/2023 12:19:20 08/23/19 24 08/23/2023 COMPR EHENS JENNIFER METAB OLIC PANEL A/G ratio 1.2 ratio 1.0-2. 0 Not Available [facility] (Lab) [address] [place], [address], 08/23/2023 12:19:20 08/23/19 24 08/23/2023 VITAM IN D 25-HY DROXY [id number] 23.1 NG/mL 30-100 low Vitam in D Statu s: Defic ient: <20 ng/mL Insuf ficie nt: 20-29 ng/mL Suffi cient : 30-10 0 ng/mL Not Available [facility] (Lab) [address] [place], [address], 08/23/2023 12:21:02 08/23/19 24 08/23/2023 T4 FREE free T4 0.90 NG/dL 0.78-2 .19 Not Available [facility] (Lab) [address] [place], [address], 08/23/2023 12:30:08 08/23/1908/23/2023 TSH thyroid-stim ulating hormone 1.450 uIU/m L 0.465- 4.680 Not Available [facility] (Lab) [address] [place], [address], 08/23/2023 12:49:19 04/03/2004/03/2024 CBC/C OMPLE TE BLD COUNT W/DIF F white blood cells 6.9 x10'3 /uL 4.2-10 .8 Not Available [facility] (Lab) [address] [place], [address], 04/03/2024 12:25:58 04/03/2004/03/2024 CBC/C OMPLE TE BLD COUNT W/DIF F red blood cells 4.31 x10'6 /uL 3.80-5 .20 Not Available [facility] (Lab) [address] [place], [address], 04/03/2024 12:25:58 04/03/2004/03/2024 CBC/C OMPLE TE BLD COUNT W/DIF F hemoglobin 14.0 g/dL 12.0-1 5.6 Not Available [facility] (Lab) [address] [place], [address], 04/03/2024 12:25:58 04/03/2004/03/2024 CBC/C OMPLE TE BLD COUNT W/DIF F hematocrit 42.7 % 35.7-4 5.7 Not Available [facility] (Lab) [address] [place], [address], 04/03/2024 12:25:58 04/03/2004/03/2024 CBC/C OMPLE TE BLD COUNT W/DIF F mean red cell volume 99.1 fL 82.0-9 9.0 high Not Available [facility] (Lab) [address] [place], [address], 04/03/2024 12:25:58 04/03/2004/03/2024 CBC/C OMPLE TE BLD COUNT W/DIF F mean red cell hemoglobin 32.5 pg 27.0-3 3.0 Not Available [facility] (Lab) [address] [place], [address], 04/03/2024 12:25:58 04/03/2004/03/2024 CBC/C OMPLE TE BLD COUNT W/DIF F mean RBC HGB concentratio n 32.8 g/dL 31.0-3 6.0 Not Available [facility] (Lab) [address] [place], [address], 04/03/2024 12:25:58 04/03/2004/03/2024 CBC/C OMPLE TE BLD COUNT W/DIF F red cell distribution width 12.9 % 11.8-1 5.5 Not Available [facility] (Lab) [address] [place], [address], 04/03/2024 12:25:58 04/03/2004/03/2024 CBC/C OMPLE TE BLD COUNT W/DIF F platelets 220 x10'3 /uL 150-40 0 Not Available [facility] (Lab) [address] [place], [address], 04/03/2024 12:25:58 04/03/2004/03/2024 CBC/C OMPLE TE BLD COUNT W/DIF F mean platelet volume 9.9 fL 9.0-12 .4 Not Available [facility] (Lab) [address] [place], [address], 04/03/2024 12:25:58 04/03/2004/03/2024 CBC/C OMPLE TE BLD COUNT W/DIF F neutrophils 67.9 % 39.0-7 2.0 Not Available [facility] (Lab) [address] [place], [address], 04/03/2024 12:25:58 04/03/2004/03/2024 CBC/C OMPLE TE BLD COUNT W/DIF F lymphocytes 20.8 % 16.0-4 7.0 Not Available [facility] (Lab) [address] [place], [address], 04/03/2024 12:25:58 04/03/2004/03/2024 CBC/C OMPLE TE BLD COUNT W/DIF F monocytes 6.0 % 5.0-12 .0 Not Available [facility] (Lab) [address] [place], [address], 04/03/2024 12:25:58 04/03/2004/03/2024 CBC/C OMPLE TE BLD COUNT W/DIF F eosinophils 4.5 % 1.0-7. 0 Not Available [facility] (Lab) [address] [place], [address], 04/03/2024 12:25:58 04/03/2004/03/2024 CBC/C OMPLE TE BLD COUNT W/DIF F basophils 0.7 % 0.0-2. 0 Not Available [facility] (Lab) [address] [place], [address], 04/03/2024 12:25:58 04/03/2004/03/2024 CBC/C OMPLE TE BLD COUNT W/DIF F immature granulocytes 0.1 % 0.00-0 .50 Not Available [facility] (Lab) [address] [place], [address], 04/03/2024 12:25:58 04/03/2004/03/2024 CBC/C OMPLE TE BLD COUNT W/DIF F neutrophils, absolute count 4.66 x10'3 /uL 1.5-8. 0 Not Available [facility] (Lab) [address] [place], [address], 04/03/2024 12:25:58 04/03/2004/03/2024 CBC/C OMPLE TE BLD COUNT W/DIF F lymphocytes, absolute count 1.43 x10'3 /uL 1.07-3 .43 Not Available [facility] (Lab) [address] [place], [address], 04/03/2024 12:25:58 04/03/2004/03/2024 CBC/C OMPLE TE BLD COUNT W/DIF F monocytes, absolute count 0.41 x10'3 /uL 0.29-0 .99 Not Available [facility] (Lab) [address] [place], [address], 04/03/2024 12:25:58 04/03/2004/03/2024 CBC/C OMPLE TE BLD COUNT W/DIF F eosinophils, absolute count 0.31 x10'3 /uL 0.02-0 .53 Not Available [facility] (Lab) [address] [place], [address], 04/03/2024 12:25:58 04/03/2004/03/2024 CBC/C OMPLE TE BLD COUNT W/DIF F basophils, absolute count 0.05 x10'3 /uL 0.01-0 .08 Not Available [facility] (Lab) [address] [place], [address], 04/03/2024 12:25:58 04/03/20 24 04/03/2024 CBC/C OMPLE TE BLD COUNT W/DIF F immature granulocytes ,absolute 0.01 x10'3 /uL 0.00-0 .05 Not Available [facility] (Lab) [address] [place], [address], 04/03/2024 12:25:58 04/03/2004/03/2024 CBC/C OMPLE TE BLD COUNT W/DIF F nucleated red blood cells 0.0 % -0 Not Available [facility] (Lab) [address] [place], [address], 04/03/2024 12:25:58 04/03/2004/03/2024 CBC/C OMPLE TE BLD COUNT W/DIF F NRBC# 0.00 x10'3 /uL Not Available [facility] (Lab) [address] [place], [address], 04/03/2024 12:25:58 04/03/2004/03/2024 LIPID PANEL cholesterol 108 mg/dL 140-19 9 low NIH ANDRESSA NSUS RECOM MENDA TION FOR IRIS STERO L: ADULT CHILD LOW RISK: <200 <170 BORDE RLINE : <200- 239 ----- HIGH RISK: >240 >200 Not Available [facility] (Lab) [address] [place], [address], 04/03/2024 13:16:03 04/03/2004/03/2024 LIPID PANEL triglyceride s 166 mg/dL 0-150 high NIH ANDRESSA NSUS REPOR T RECOM MENDA TION FOR TRIGL YCERI GERALDINE: ADULT CHILD LOW RISK: <150 ----- BODER LINE: 150-1 99 ----- HIGH RISK: >200 ----- Not Available [facility] (Lab) [address] [place], [address], 04/03/2024 13:16:03 04/03/2004/03/2024 LIPID PANEL HDL cholesterol 41 mg/dL 40- Not Available [facility] (Lab) [address] [place], [address], 04/03/2024 13:16:03 04/03/2004/03/2024 LIPID PANEL LDL cholesterol, calculated 34 mg/dL 0-130 NIH ANDRESSA NSUS REPOR T RECOM MENDA TIONS FOR LDL: ADULT CHILD LOW RISK <130 <110 (OPTI MAL LDL) <100 ----- BORDE RLINE : 130-1 59 ----- HIGH RISK: >160 >130 A TRIGL YCERI DE RESUL T >400 INVAL IDATE S THE CALCU LATIO N FOR LDL FRACT IONAT ION - THE LDL RESUL T WILL NOT BE REPOR ABIMBOLA. Not Available [facility] (Lab) [address] [place], [address], 04/03/2024 13:16:03 04/03/2004/03/2024 COMPR EHENS JENNIFER METAB OLIC PANEL sodium 139 mmol/ L 137-14 5 Not Available [facility] (Lab) [address] [place], [address], 04/03/2024 13:16:07 04/03/2004/03/2024 COMPR EHENS JENNIFER METAB OLIC PANEL potassium 4.2 mmol/ L 3.5-5. 1 Not Available [facility] (Lab) [address] [place], [address], 04/03/2024 13:16:07 04/03/2004/03/2024 COMPR EHENS JENNIFER METAB OLIC PANEL chloride 107 mmol/ L 98-107 Not Available [facility] (Lab) [address] [place], [address], 04/03/2024 13:16:07 04/03/2004/03/2024 COMPR EHENS JENNIFER METAB OLIC PANEL carbon dioxide 22 mmol/ L 22-30 Not Available [facility] (Lab) [address] [place], [address], 04/03/2024 13:16:07 04/03/20 24 04/03/2024 COMPR EHENS JENNIFER METAB OLIC PANEL anion gap 14.2 mmol/ L 14-22 Not Available [facility] (Lab) [address] [place], [address], 04/03/2024 13:16:07 04/03/2004/03/2024 COMPR EHENS JENNIFER METAB OLIC PANEL glucose 118 mg/dL 70-99 high Not Available [facility] (Lab) [address] [place], [address], 04/03/2024 13:16:07 04/03/2004/03/2024 COMPR EHENS JENNIFER METAB OLIC PANEL BUN 13 mg/dL 8-19 Not Available [facility] (Lab) [address] [place], [address], 04/03/2024 13:16:07 04/03/20 24 04/03/2024 COMPR EHENS JENNIFER METAB OLIC PANEL creatinine 0.78 mg/dL 0.66-1 .25 Not Available [facility] (Lab) [address] [place], [address], 04/03/2024 13:16:07 04/03/2004/03/2024 COMPR EHENS JENNIFER METAB OLIC PANEL GFR >60 Refer ence Range : [place] ge GFR Healt hy Adult : >60 mL/mi n/1.7 3 m2 Chron ic Kidne y Disea se: 15-60 mL/mi n/1.7 3 m2 Kidne y Failu re: <15/m L/min /1.73 m2 www.n iddk. nih.g ov The MDRD study equat ion has not been valid ated in child claudia <18 years of age; pregn ant women ; the elder ly >85 years of age; or in some racia l or ethni c subgr oups, such as Hispa nics. Outsi de the valid ated neno eters , estim ated GFR is less accur ate, requi ring clini daria judgm ent on a case- by-ca se basis . Clini daria inter preta tion for other races and ages must be made by the clini santiago. The MDRD study equat ion has not been valid ated for the evalu ation of serum creat inine relat ed to nutri sheeba l statu s or medic ation usage . For perso ns <18 years of age, a pedia tric GFR calcu lator is avail able on the F websi te: https ://latosha w.alexandru jane.o rg/pr ofess ional s/kdo qi/gf r_cal culat or Not Available [facility] (Lab) [address] [place], [address], 04/03/2024 13:16:07 04/03/2004/03/2024 COMPR EHENS JENNIFER METAB OLIC PANEL alkaline phosphatase 86 U/L 38-126 Not Available [facility] (Lab) [address] [place], [address], 04/03/2024 13:16:07 04/03/2004/03/2024 COMPR EHENS JENNIFER METAB OLIC PANEL alanine aminotransfe rase 21 U/L 0-35 Not Available [facility] (Lab) [address] [place], [address], 04/03/2024 13:16:07 04/03/2004/03/2024 COMPR EHENS JENNIFER METAB OLIC PANEL aspartate aminotransfe rase 26 U/L 15-37 Not Available [facility] (Lab) [address] [place], [address], 04/03/2024 13:16:07 04/03/20 24 04/03/2024 COMPR EHENS JENNIFER METAB OLIC PANEL bilirubin, total 1.10 mg/dL 0.20-1 .30 Not Available [facility] (Lab) [address] [place], [address], 04/03/2024 13:16:07 04/03/20 24 04/03/2024 COMPR EHENS JENNIFER METAB OLIC PANEL calcium 9.2 mg/dL 8.4-10 .2 Not Available [facility] (Lab) [address] [place], [address], 04/03/2024 13:16:07 04/03/2004/03/2024 COMPR EHENS JENNIFER METAB OLIC PANEL total protein 6.8 g/dL 6.3-8. 2 Not Available [facility] (Lab) [address] [place], [address], 04/03/2024 13:16:07 04/03/20 24 04/03/2024 COMPR EHENS JENNIFER METAB OLIC PANEL albumin 4.1 g/dL 3.0-4. 4 Not Available [facility] (Lab) [address] [place], [address], 04/03/2024 13:16:07 04/03/2004/03/2024 COMPR EHENS JENNIFER METAB OLIC PANEL globulin 2.7 g/dL 2.6-4. 2 Not Available [facility] (Lab) [address] [place], [address], 04/03/2024 13:16:07 04/03/2004/03/2024 COMPR EHENS JENNIFER METAB OLIC PANEL A/G ratio 1.5 ratio 1.0-2. 0 Not Available [facility] (Lab) [address] [place], [address], 04/03/2024 13:16:07 04/03/2004/03/2024 VITAM IN D 25-HY DROXY vd25oh 33.0 NG/mL 30-100 Vitam in D Statu s: Defic ient: <20 ng/mL Insuf ficie nt: 20-29 ng/mL Suffi cient : 30-10 0 ng/mL Not Available [facility] (Lab) [address] [place], [address], 04/03/2024 13:20:15 04/03/20 24 04/03/2024 T4 FREE free T4 0.78 NG/dL 0.78-2 .19 Not Available [facility] (Lab) [address] [place], [address], 04/03/2024 13:48:36 04/03/20 24 04/03/2024 TSH thyroid-stim ulating hormone 0.811 uIU/m L 0.465- 4.680 Not Available [facility] (Lab) [address] [place], [address], 04/03/2024 13:59:18 09/14/19 24 09/14/2023 scree xiao breas t stephen, bilat [facility] [address] [place] [address] Patimegan t Name: GEORGIE MEJIA MS Access ion #: [id number] Sex: F : 1954 0 6 Dictat ed By: Laverne Lamar Attend ing Physic mikayla: DILCIA FINCH Orderi ng Physic mikayla: DILCIA FINCH Exam Date: 2023 10:36 AM Exam Name: MG SCRN BREAST STEPHEN BILAT Admitt ing Diagno sis(es ): SCREEN ING MAMMOG ROBERTO WITH TOMOSY NTHESI S: REASON FOR EXAM: screen ing mammog roberto COMPAR TAYE: None TECHNI QUE: Bilate ral CC and MLO views obtain ed. Images were obtain ed using a Digita l Tomosy nthesi s Unit. Standa rd 2D and 3D Tomosy nthesi s images were review ed. FINDIN GS: BREAST COMPOS ITION: There are scatte red areas of fibrog landul ar densit y in the bilate ral breast s. In the right breast , no asymme trical parenc hymal patter n, patrick ectura l distor tion, pleomo rphic microc alcifi cation s or masses . In the left breast , no asymme trical parenc hymal patter n, patrick ectura l distor tion, pleomo rphic microc alcifi cation s or masses . IMPRES VICK: No findin gs of malign val. Recomm end annual mammog roberto. BIRADS : 2 - Benign Electr onical ly Signed by: Laverne Lamar at 2023 12:00: 14 PM Page 1 [email or web address] [facility] (Imaging) [address] [facility], [place], [address], 09/23/2024 13:40:52 09/14/19 24 09/14/2023 DEXA, axial skele ton [facility] [address] [facility], [place] [address] Patien t Name: GEORGIE MEJIA MS Access ion #: [id number] Sex: F : 1954 0 6 Dictat ed By: Laverne Lamar Attend ing Physic mikayla: DILCIA FINCH [facility] Physic mikayla: DILCIA FINCH Exam Date: 2023 10:36 AM Exam Name: XR DEXA-H IPS PELVIS SPINE Admitt ing Diagno sis(es ): INDICA TION: osteop orosis , postme nopaus al DEXA SCAN: BONE DENSIT Y REPORT : AP SPINE (L1-L4 ) : T Score: -0.2 LEFT HIP TOTAL : T Score: -1.7 RT HIP TOTAL : T Score: -2.0 TOTAL BILAT HIP AVG: T Score: -1.8 10 YEAR FRACTU RE RISK* not provid ed IMPRES VICK: 1. Normal bone minera l densit y of the lumbar spine. 2. Osteop enia of the left hip. 3. Osteop enia of the right hip. ------ ------ ------ ------ ------ ------ ------ ------ ----- *FRAX versio n 3.08. Fractu re probab ility calcul ated for an untrea abimbola patien t. Fractu re probab ility may be lower if the patien t has receiv ed treatm ent. T-scor e: compar taye by som byrd deviat ion (SD) to a young adult popula tion, matche d for sex and ethnic ity (used for postme nopaus al women and men >50 years) and classi fied by WHO criter ia. -1.0: normal <-1.0 to >-2.5: osteop enia Page 1 [facility] [address] [place] [address] Patien t Name: GEORGIE MEJIA MS Access ion #: [id number] Sex: F : 1954 0 6 Dictat ed By: Laverne Lamar Attend ing Physic mikayla: BRIAN BARRERAi Physic mikayla: DILCIA FINCH Exam Date: 2023 10:36 AM Exam Name: XR DEXA-H IPS PELVIS SPINE Admitt ing Diagno sis(es ): -2.5: osteop orosis -2.5 plus fragil ity fractu re: severe osteop orosis Z-scor e: compar ed by SD to an age, sex, and ethnic ity popula tion (used for premen opausa l women, men <50 years, and childr en instea d of T-scor e WHO criter ia 4) <-2.0: below expect ed range/ low bone densit y for age, and a cause should be sought Electr onical ly Signed by: Laverne Lamar at 2023 12:08: 54 PM Page 2 [email or web address] [facility] (Imaging) [address] [place], [address], 09/23/2024 13:40:52 09/14/19 24 09/14/2023 MAMMO , scree xiao, digit al, bilat eral No observ ation record ed. [email or web address] [facility] ([facility]) [address] [place], [address], 03/18/2024 09:55:42 09/14/19 24 09/14/2023 DEXA, axial skele ton No observ ation record ed. [facility] ([facility]) [address] [place], [address], 03/18/2024 09:56:03 04/10/20 24 04/10/2024 US, thyro id No observ ation record ed. [email or web address] [facility] [address] [place], [address], 09/23/2024 13:43:40 04/10/20 24 04/10/2024 imagi ng/di agnos tic resul t No observ ation record ed. [facility] [address] [place], [address], 04/10/2024 19:01:07 04/29/20 24 04/10/2024 imagi ng/di agnos tic resul t No observ ation record ed. [facility] [address] [place], [address], 04/29/2024 13:22:49 09/17/19 25 09/16/2024 scree xiao breas t stephen, bilat [facility] [address] [place], [place] [id number] Patien t Name: ROSAMARIA MEJIA MS Access ion #: [id number] Sex: F : 1954 4 Dictat ed By: Laverne Lamar Attend ing Physic mikayla: DILCIA FINCH Orderi ng Physic mikayla: DILCIA FINCH Exam Date: 2024 14:20 PM Exam Name: MG SCRN BREAST STEPHEN BILAT Admitt ing Diagno sis(es ): PROCED URE: SCREEN ING MAMMOG ROBERTO WITH TOMOSY NTHESI S REASON FOR EXAM: Screen ing COMPAR TAYE: None TECHNI QUE: Bilate ral CC and MLO views obtain ed. Images were obtain ed using a Digita l Tomosy nthesi s Unit. Standa rd 2D and 3D Tomosy nthesi s images were review ed. This examin ation was analyz ed using Lunit Insigh t DBT/MM G in additi on to a radiol ogist review , an AI softwa re develo ped to enhanc e the effect ivenes s of breast cancer screen ing with mammog bruce. FINDIN GS: BREAST COMPOS ITION: B - There are scatte red areas of fibrog landul ar densit y. In the right breast , no asymme trical parenc hymal patter n, patrick ectura l distor tion, pleomo rphic microc alcifi cation s or masses . In the left breast , no asymme trical parenc hymal patter n, patrick ectura l distor tion, pleomo rphic microc alcifi cation s or masses . IMPRES VICK: No findin gs of malign val. RECOMM ENDATI ON: Recomm end annual mammog roberto. ASSESS MENT: Page [address] [facility] [address] [place] [address] Patien t Name: ROSAMARIA MEJIA MS Access ion #: [id number] Sex: F : 1954 4 Dictat ed By: Laverne Lamar Attend ing Physic mikayla: BRIAN BARRERAb[facility] Physic mikayla: DILCIA FINCH Exam Date: 2024 14:20 PM Exam Name: MG SCRN BREAST STEPHEN BILAT Admitt ing Diagno sis(es ): BIRADS : 1 - Negati ve Electr onical ly Signed by: Laverne Lamar at 2024 14:47: 05 PM Page 2 [email or web address] (Imaging) [address] [place], [address], 09/23/2024 13:43:41 09/17/19 25 09/16/2024 MAMMO , scree xiao, digit al, bilat eral No observ ation record ed. [email or web address] [facility] [address] [facility], [place], [address], 09/23/2024 13:43:41 09/20/19 25 09/19/2024 imagi ng/ebrry rice tic resul t No observ ation record ed. [facility] [address] , [place], [address], 09/19/2024 14:05:56 Result Notes None recorded. Problems Name Problem SNOMED Code Status Onset Date Resolution Date Notes Provider Name and Address Organization Details Recorded Time Bilateral shoulder joint pain 9470119962116 9104 Active 2021 Not Available [facility] 3 21:14:16 Pain of right shoulder joint 1964258858946 9100 Active 2021 Not Available [facility] 3 21:14:16 Pain in throat 007687661 Active 2021 Not Available [facility] 3 21:14:16 Foot callus 396044414 Active 2021 Not Available [facility] 3 21:14:16 Ingrowing toenail 126223610 Active 2021 Not Available [facility] 3 21:14:16 Anxiety 24197774 Active 2020 Not Available [facility] 3 21:14:17 Upper respirator y infection 85773593 Active 2021 Not Available [facility] 3 21:14:17 Mixed anxiety and depressive disorder 213365376 Active 2022 TORY Cisneros [address] [facility], [facility] [address], [place], [address] , [employer] 3 21:28:26 Migraine 47327986 Active 2022 TORY Cisneros [address] [facility], [facility] [address], [place], [address] , [employer] 3 21:28:30 Hyperlipid emia 48954811 Active 2022 Jany Hopper, RADIAL ARM SAW OPERATOR-C [address], [place], [address] , [place] - [employer] [facility] 3 21:28:34 Cyst of thyroid 48358107 Active 2022 KENROY Cisneros-C [address], [place], [address] , [place] - [facility] [employer] [facility] 3 21:28:49 Prediabete s 303600328 Active 2022 VALERIANO CisnerosC [address], [place], [address] , [employer] [facility] 3 21:28:59 Overweight 193720558 Active 2022 KENROY Cisneros-C [address], [place], [address] , [employer] [facility] 3 21:29:17 Gastroesop hageal reflux disease 972322409 Active 2022 VALERIANO CisnerosC [address], [place], [address] , [employer] 3 21:30:22 Allergic rhinitis 22042653 Active 2022 VALERIANO CisnerosC [address], [place], [address] , [employer] [facility] 3 17:19:57 Arthritis 9576952 Active 2022 VALERIANO CisnerosC [address], [place], [address] , [employer] S [employer] [facility] 3 17:23:31 Gastroesop hageal reflux disease without esophagiti s 281316349 Active 2023 Anna zapata MD [address], [place], [address] , [place] - S [employer] [facility] 4 17:13:18 Essential hypertensi on 45159080 Active 2023 Anna zapata MD [address], [place], [address] , [facility] [employer] [facility] 4 17:31:34 Deficiency of vitamin D3 607243418 Active 2023 Merlyn Laoby MA null, [facility] 4 15:00:15 Pain of left knee joint 1853557384129 07 Active 2023 Anna zapata MD [address], [place], [address] , [facility] [employer] [facility] 4 10:47:16 Pain in left foot 5789243658505 07 Active 2023 Anna zapata MD [address], [place], [address] , [facility] [employer] [facility] 4 10:47:23 Problem Notes None recorded. Procedures Surgical History Date Name Laterality Status Provider Name and Address Organization Details Recorded Time tonsillectomy completed Not Available [facility] 08/10/2022 21:12:47 Cataract Surgery completed Not Available [facility] 08/10/2022 21:12:47 Breast Biopsy completed Not Available [facility] 08/10/2022 21:12:47 Imaging Results Imaging Date Name Status LastModified by Organiz ation Details LastModified Time 09/14/2023 screening breast stephen, bilat completed [address] (Imaging) [address] [place], [address], 09/23/2024 13:40:52 09/14/2023 DEXA, axial skeleton completed [address] (Imaging) [address] [place], [address], 09/23/2024 13:40:52 09/14/2023 MAMMO, screening, digital, bilateral completed [email or web address] [place] [address] ([facility]) [address] [place], [address], 03/18/2024 09:55:42 09/14/2023 DEXA, axial skeleton completed [email or web address] [place] [address] ([facility]) [address] [place], [address], 03/18/2024 09:56:03 04/10/2024 US, thyroid active [address] [place], [address], 09/23/2024 13:43:40 04/10/2024 imaging/diagno stic result active [facility] [address] [place], [address], 04/10/2024 19:01:07 04/10/2024 imaging/diagno stic result active [facility] [address] [place], [address], 04/29/2024 13:22:49 09/16/2024 screening breast stephen, bilat active [address] (Imaging) [address] [place], [address], 09/23/2024 13:43:41 09/16/2024 MAMMO, screening, digital, bilateral active [address] [place], [address], 09/23/2024 13:43:41 09/19/2024 imaging/diagno stic result active [facility] [address], [place], [address], 09/19/2024 14:05:56 Procedure Notes None recorded. Medical Equipment None Reported. Allergies Allergen ID Allergen Name Allergen Category Reaction Reaction Severity Criticality Documentation Date Start Date Code Code System Note Provider Name and Address Organization Details Recorded Time 85478 cephalexi n medicatio n rash Not available Not available 08/10/2022 2231 RxNorm Not Available [facility] 21:16:40 [address]9553 Ceclor medicatio n Not available Not available Not available 08/10/202286491 5 RxNorm Not Available [facility] 3 21:16:41 27951 Blistex medicatio n Not available Not available Not available 08/10/2022 86822 7 RxNorm Not Available [facility] 3 21:16:41 84922 Flonase medicatio n rash Not available Not available 02/07/2023 86513 RxNorm TORY Cisneros [address] [facility], [facility] [address], [place], [address] , [facility] [employer] 3 16:48:27 Medications Name Sig Start Date Stop Date Status Note LastModified by Organization Details LastModified Time Prescript ion - Prior Authoriza tion Request active Not Available Not Available Not Available citalopra m 40 mg tablet TAKE 1 TABLET BY MOUTH ONCE DAILY active Not Available Not Available No t Available azithromy kole 250 mg tablet TAKE 2 TABLETS (500 MG) BY ORAL ROUTE ONCE DAILY FOR 1 DAY THEN 1 TABLET (250 MG) BY ORAL ROUTE ONCE DAILY FOR 4 DAYS 01/25 completed Not Available Not Available Not Available valacyclo vir 1 gram tablet TAKE 2 TABLETS BY MOUTH EVERY 12 HOURS FOR 2 DAYS NEEDED active Not Available Not Available No t Available medroxypr ogesteron e 2.5 mg tablet TAKE 1 TABLET BY MOUTH ONCE DAILY active Not Available Not Available No t Available amlodipin e 2.5 mg tablet TAKE 1 TABLET BY MOUTH ONCE DAILY active Not Available Not Available No t Available meloxicam 7.5 mg tablet active Not Available Not Available Not Available alprazola m 0.25 mg tablet TAKE 1 TABLET BY MOUTH ONCE DAILY NEEDED active Not Available Not Available No t Available citalopra m 20 mg tablet TAKE 1 TABLET BY MOUTH ONCE DAILY FOR 1 WEEK AND THEN TAKE 2 TABS DAILY THEREAFT ER 02/26 completed Not Available Not Available Not Available prednisol one acetate 1 % eye drops,percy pension INSTILL 1 DROP INTO LEFT EYE THREE TIMES DAILY 02/26 completed Not Available Not Available Not Available estradiol 1 mg tablet TAKE 1 TABLET BY MOUTH ONCE DAILY active Not Available Not Available No t Available pantopraz ole 40 mg tablet,de layed release TAKE 1 TABLET BY MOUTH ONCE DAILY 08/21 completed Not Available Not Available Not Available esomepraz ole magnesium 40 mg capsule,d elayed release TAKE 1 CAPSULE BY MOUTH ONCE DAILY NEEDED active Not Available Not Available No t Available buspirone 10 mg tablet TAKE 1 TABLET BY MOUTH TWICE DAILY active Not Available Not Available No t Available buspirone 7.5 mg tablet Take 1 tablet twice a day by oral route. 06/07 completed Not Available Not Available Not Available methylpre dnisolone 4 mg tablets in a dose pack TAKE BY MOUTH DIRECTED ON INSIDE OF PACKAGE 07/02 completed Not Available Not Available Not Available fluticaso ne propionat e 50 mcg/actua tion nasal spray,percy pension USE 2 SPRAY(S) IN EACH NOSTRIL ONCE DAILY 02/07 completed Not Available Not Available Not Available rosuvasta tin 40 mg tablet TAKE 1 TABLET BY MOUTH ONCE DAILY active Not Available Not Available No t Available cholecalc iferol (vitamin D3) 1,250 mcg (50,000 unit) capsule TAKE 1 CAPSULE BY MOUTH ONCE A WEEK 08/20 completed Not Available Not Available Not Available Ubrelvy 100 mg tablet Take 1 PO at start of migraine prn, may repeat dose in 2h if no relief, no more than 2 tabs per 24h period 2024 active Approved ubrelvy. Valid: 07/24/23- 08/22/24. Case# [id number] . Not Available Not Available Not Available ID NOW COVID-19 Test Kit USE DIRECTED 07/02 completed Not Available Not Available Not Available BinaxNOW COVID-19 Ag Self Test kit Use as Directed on the Package 10/03 completed Not Available Not Available Not Available Vitals Date Recorded Body height Body mass index (BMI) Body weight Body temperature Heart rate Oxygen saturation Oxygen saturation in Arterial blood by Pulse oximetry Systolic blood pressure Diastolic blood pressure Provider Name and Address Organization Details Last Updated DateTime 3 172.72 cm 26.8 kg/m2 47317.2 6 g 97.4 [degF] 82 /min 98 % 98 % 122 mm[Hg] 76 mm[Hg] Deana Lnae MA [place] [employer] [facility] 3 16:40:17 Date Recorded Body height Body mass index (BMI) Body weight Body temperature Heart rate Oxygen saturation Oxygen saturation in Arterial blood by Pulse oximetry Systolic blood pressure Diastolic blood pressure Provider Name and Address Organization Details Last Updated DateTime 3 172.72 cm 27.7 kg/m2 27421.8 1 g 97.8 [degF] 84 /min 97 % 97 % 122 mm[Hg] 74 mm[Hg] Deana Lane MA [facility] [employer] [facility] 3 16:37:25 Date Recorded Body height Body mass index (BMI) Body weight Body temperature Heart rate Systolic blood pressure Diastolic blood pressure Provider Name and Address Organization Details Last Updated DateTime 4 172.72 cm 27.8 kg/m2 42216.4 g 97.8 [degF] 84 /min 130 mm[Hg] 66 mm[Hg] MAKENNA Lucas [facility] [employer] [facility] 4 17:02:05 Date Recorded Body height Body mass index (BMI) Body weight Body temperature Heart rate Respiratory rate Oxygen saturation Oxygen saturation in Arterial blood by Pulse oximetry Pain severity - 0-10 verbal numeric rating [Score] - Reported Systolic blood pressure Diastolic blood pressure Provider Name and Address Organization Details Last Updated DateTime 4 172.72 cm 29 kg/m2 93010.1 4 g 97.3 [degF] 76 /min 16 /min 96 % 96 % 3 124 mm[Hg] 76 mm[Hg] Salvador Weinberg LPN [facility] [employer] [facility] 4 10:16:07 Date Recorded Body height Body mass index (BMI) Body weight Body temperature Heart rate Systolic blood pressure Diastolic blood pressure Provider Name and Address Organization Details Last Updated DateTime 5 172.72 cm 30.1 kg/m2 63732.2 9 g 97.3 [degF] 78 /min 124 mm[Hg] 68 mm[Hg] MAKENNA Lucas [facility] [employer] [facility] 5 10:17:01 Social History Question Answer Notes LastModified by Organizat ion Details LastModified Time Tobacco Smoking Status Never Smoker Not Available [employer] 08/10/2022 21:12:40 Do You Have An Advance Directive? No MIGRATION.[id number] 0715 Information not available 08/10/2022 What Is Your Level Of Alcohol Consumption? Occasional MIGRATION.247700 9909 Information not available 08/10/2022 Do You Wear A Helmet When Biking? Yes MIGRATION.239569 4694 Information not available 08/10/2022 Are You Blind Or Do You Have Difficulty Seeing? No MIGRATION.826939 1771 Information not available 08/10/2022 What Is Your Code Status? Full Code MIGRATION.254574 8826 Information not available 08/10/2022 In The 14 Days Before Symptom Onset, Have You Had Close Contact With A Laboratory-confir med COVID-19 While That Case Was Ill? No MIGRATION.854882 9730 Information not available 08/10/2022 In The 14 Days Before Symptom Onset, Have You Had Close Contact With A Person Who Is Under Investigation For COVID-19 While That Person Was Ill? No MIGRATION.874421 9589 Information not available 08/10/2022 Are You Deaf Or Do You Have Serious Difficulty Hearing? No MIGRATION.222196 7293 Information not available 08/10/2022 What Type Of Diet Are You Following? REGULAR MIGRATION.772334 0950 Information not available 08/10/2022 What Is The Highest Grade Or Level Of School You Have Completed Or The Highest Degree You Have Received? [id number] MIGRATION.877814 2817 Information not available 08/10/2022 What Is Your Occupation? Teacher MIGRATION.238975 0716 Information not available 08/10/2022 Have There Been Any Changes To Your Family Or Social Situation? No MIGRATION.344957 6896 Information not available 08/10/2022 What Is The Fluoride Status Of Your Home? Fluoridated MIGRATION.885373 0688 Information not available 08/10/2022 Are There Any Guns Present In Your Home? No MIGRATION.894932 6508 Information not available 08/10/2022 Do You Use Insect Repellent Routinely? Yes MIGRATION.637896 8921 Information not available 08/10/2022 Where Do You Live? [place] MIGRATION.778940 8568 Information not available 08/10/2022 Do You Have A Medical Power Of Nurse Obgyn? No MIGRATION.035528 5024 Information not available 08/10/2022 What Was The Date Of Your Most Recent Tobacco Screening? 08/20/2024 [email or web address] Information not available 08/20/2024 Have You Ever Been Counseled For Unhealthy Alcohol Use? No MIGRATION.435509 0380 Information not available 08/10/2022 What Is Your Relationship Status? MIGRATION.765878 1472 Information not available 08/10/2022 Do You Use Your Seat Belt Or Car Seat Routinely? Yes MIGRATION.837089 7695 Information not available 08/10/2022 Do You Have Smoke And Carbon Monoxide Detectors In Your Home? Yes MIGRATION.026524 3616 Information not available 08/10/2022 Are You Passively Exposed To Smoke? No MIGRATION.549790 7368 Information not available 08/10/2022 Are There Any Smokers In Your House? No MIGRATION.139469 8999 Information not available 08/10/2022 Do You Feel Stressed (tense, Restless, Nervous, Or Anxious, Or Unable To Sleep At Night)? [id number] MIGRATION.242293 9636 Information not available 08/10/2022 Do You Use Sunscreen Routinely? Yes MIGRATION.855506 6740 Information not available 08/10/2022 Has Tobacco Cessation Counseling Been Provided? No MIGRATION.417821 8883 Information not available 08/10/2022 Have You Recently Traveled Abroad? No MIGRATION.351993 3137 Information not available 08/10/2022 Do You Have Any Dietary Restrictions? No MIGRATION.992830 8146 Information not available 08/10/2022 Do You Or Have You Ever Used Any Other Forms Of Tobacco Or Nicotine? No MIGRATION.041351 9907 Information not available 08/10/2022 Sex: Female Functional Status Question Answer Note LastModified by Organizat ion Details LastModified Time Do you have difficulty walking or climbing stairs? No MIGRATION.5048269 026 Information not available 08/10/2022 Do you have transportation difficulties? No MIGRATION.1312521 026 Information not available 08/10/2022 Are you able to walk? YESWOREST MIGRATION.3020827 026 Information not available 08/10/2022 Do you have difficulty doing errands alone? No MIGRATION.1358122 026 Information not available 08/10/2022 Are you able to care for yourself? No MIGRATION.0782297 026 Information not available 08/10/2022 Do you have difficulty dressing or bathing? No MIGRATION.4927488 026 Information not available 08/10/2022 What is your exercise level? None MIGRATION.2745712 026 Information not available 08/10/2022 Mental Status Question Answer Note LastModified by Organizat ion Details LastModified Time Do you have difficulty concentrating, remembering or making decisions? No MIGRATION.601840760 6 Information not available 08/10/2022 Family History Relationship Description Onset Age of this Age Resolved Age Notes LastModified by Organization Details LastModified Time Mother Hypertensive disorder MIGRATION.901 [id number] Not available 08/10/2022 21:12:49 Mother Cerebrovascu lar accident MIGRATION.252 [id number] Not available 08/10/2022 21:12:49 Mother Arthritis MIGRATION.445 4508614 Not available 08/10/2022 21:12:49 Father Hypertensive disorder MIGRATION.415 5139721 Not available 08/10/2022 21:12:49 Father Chronic obstructive pulmonary disease MIGRATION.637 9648533 Not available 08/10/2022 21:12:50 Father Heart disease MIGRATION.935 8535107 Not available 08/10/2022 21:12:50 Paternal Grandmother Diabetes mellitus MIGRATION.578 7469266 Not available 08/10/2022 21:12:50 Maternal Grandfather Malignant neoplastic disease MIGRATION.089 9496073 Not available 08/10/2022 21:12:50 Maternal Grandmother Malignant neoplastic disease MIGRATION.748 [id number] Not available 08/10/2022 21:12:50 Medical History Condition Response NERVE DISEASE N BLINDNESS N RHEUMATIC FEVER N KIDNEY STONES Y BLADDER PROBLEMS N MRSA N OTHER # 1 N POLIO N LUNG DISEASE/DISORDER N HISTORY OF DRUG ABUSE N RADIATION / CHEMOTHERAPY N COPD N Other # 2 N BLOOD DISEASES N EAR OR HEARING PROBLEMS N MUMPS N SHINGLES N DEPRESSION (INCLUDING POST ) Y BOWEL PROBLEMS Y STROKE/TIA N ULCERS N BENIGN PROSTATIC HYPERPLASIA N MEASLES Y HYPOTENSION N MYOCARDIAL INFARCTION N OBESITY N GERD/NAUSEA N ANEURYSM N URINARY/BLADDER/KIDNEY PROBLEMS Y CORONARY ARTERY DISEASE (CAD) N ADDICTION CONCERNS N Impotence N ENDOMETRIOSIS N USE OF BLOOD THINNERS N SKIN PROBLEMS N GASTROINTESTINAL DISORDER N PERIPHERAL VASCULAR DISEASE N MUSCLE,JOINT OR BONE PROBLEMS N GASTROINTESTINAL BLEEDING N BLOOD CLOTS N ASTHMA N CATARACTS Y ERECTILE DYSFUNCTION N VARICOSITIES N GI PROBLEMS N Low Testosterone N INFERTILITY N AIDS/HIV N CHEMOTHERAPY / RADIATION N LIVER DISEASE N MALE HYPOGONADISM N HYPERTENSION N Deficiency N TOURETTE'S N ANXIETY DISORDER Y BLOOD TRANSFUSION N ANEMIA/BLOOD DISORDER N CHRONIC EAR INFECTIONS N BRONCHITIS Y TUBERCULOSIS N GLAUCOMA N FOOT PROBLEM N DIVERTICULITIS N SLEEP APNEA N CHICKENPOX Y INFECTIOUS DISEASE N PROSTATE N HEART ARRHYTHMIA N INSOMNIA N HIGH CHOLESTEROL / HYPERLIPIDEMIA Y EYE PROBLEMS N HYPERTHYROIDISM N EDEMA N CHRONIC PAIN SYNDROME N HYPOTHYROIDISM N CAROTID BLOCKAGE N CONSTIPATION Y BACK / NECK PROBLEMS Y HAVE YOU BEEN HOSPITALIZED OR SEEN IN [facility] IN THE PAST YEAR ? Y ATHEROSCLEROSIS N BREAST PROBLEMS Y DIALYSIS N ECZEMA N OSTEOPOROSIS N ARTHRITIS N NO SIGNIFICANT PAST MEDICAL HISTORY N APPENDICITIS N DIABETES, TYPE N BAD TEETH Y ENT N HEARTBURN / REFLUX N AUTISM SPECTRUM DISORDER (ASD) N HEPATITIS / LIVER DISEASE N GOUT N SLEEP DISORDER N ALZHEIMER'S DISEASE N Brain Problems N DEMENTIA N HERPES N SEIZURES/EPILEPSY N HEADACHES/MIGRAINES Y VASCULAR DISEASE N PACEMAKER N Blood Disorder N DIZZINESS Y HEART DISEASE/HEART PROBLEMS N KIDNEY DISEASE N MULTIPLE SCLEROSIS N CANCER: SPECIFY N CARDIAC ARRHYTHMIA N ATRIAL FIBRILLATION N Gall Stones N PULMONARY EMBOLISM N AUTOIMMUNE DISEASE N Gynecological HistoryNo gynecological history recorded. Obstetrics History GPAL:G 0 P 0 0 0 0 Immunizations Vaccine Type Date Status Note Provider Nam e and Address Organization Details Recorded Time SARS-COV-2 (COVID-19) vaccine, UNSPECIFIED 1 completed Not Available [facility] 08/10/2022 21:16:37 SARS-COV-2 (COVID-19) vaccine, UNSPECIFIED 1 completed Not Available [facility] 08/10/2022 21:16:37 Past Encounters Encounter ID Performer Location Encounter Start Date Encounter Closed Date Diagnosis/Indication Diagnosis SNOMED-CT Code Diagnosis ICD10 Code Diagnosis Note [id number] [facility] [address] [facility] [address] 01/05/2021 00:00:00 01/05/2021 19:34:24 [id number] [facility] Internal Med [facility] [address] [place], [place] [address]., [address] [address] 07/02/2021 00:00:00 07/02/2021 22:59:45 [id number] [facility] Internal Med [facility] [address] [facility] [address] 12/24/2021 00:00:00 12/24/2021 17:15:55 [id number] [facility] [place] [address] [place] [address] 01/10/2022 00:00:00 01/10/2022 12:44:03 [id number] [facility] Internal Med [facility] [address] [facility] [facility] 15 [place] [address] 01/25/2022 00:00:00 01/25/2022 16:59:36 [id number] [facility] Internal Med [facility] [address] [facility] [facility] [place] [address] 06/07/2022 00:00:00 06/07/2022 11:54:29 [id number] TORY Cisneros S[facility] Internal Med [facility] [address] [facility] [place] [address] 10/03/2022 16:27:10 10/03/2022 17:20:42 Mixed anxiety and depressive disorder 362186602 F41.8 on citalopram and p.r.n. Xanax from [facility] worked as an add on but was too expensiveo n [place]one [place] -she is aware of side effects, risks, and benefitsCa ll office if any change in mood or behaviorRe commend psychiatry referral to discuss additional meds to help with stress/anx iety- she declines psychiatry referral today extensive support provided to patient today- recommend counseling or [facility] program, she declines at this time, but will call us if she changes her mindOver 45 minute spent with patient, over half spent in counseling Migraine 40877549 G43.90 9 on amlodipine on Ubrelvy for abortive therapy -she is aware of side effects, risks, and benefits Hyperlipidemia 54520387 E78.5 diet controlled Family his tory of Cardiovascular disease 224034066 Z82.49 is s/p workup with Dr. Corbett Cyst of thyroid 10333538 E04.1 due for repeat u/s 01/2023 Gastroesop hageal reflux disease 103898420 K21.9 on protonix, she is aware of side effects, risks, benefitsTa ke p.r.n. if ableAcid reduction lifestyle measures discussed Prediabetes 501355653 R7 3.03 recommend healthy, well balanced mealsfocus on lean meats, fresh vegetables , fresh fruits, whole grainsredu ce fast/proce ssed foods or eating out to no more than 1-2 times per weekaim to get 30 min of exercise most days of the week- walking is a great choice Overweight 422802375 E66 .3 as above Allergic rhinitis 673446 04 J30.9 Arthritis 5475878 M19.90 On meloxicam p.r.n.-she is aware of side effects, risks, and benefits She knows to take this only p.r.n. and with food [id number] Jany Ceja, TORY [facility] [place] [address] [facility] [address] [place] [address] 02/07/2023 16:27:11 02/07/2023 17:03:06 Mixed anxiety and depressive disorder 193030835 F41.8 on citalopram and p.r.n. Xanax from [facility] worked as an add on but was too expensiveo n [place]one [place] -she is aware of side effects, risks, and benefitsCa office if any change in mood or behaviorRe commend psychiatry referral to discuss additional meds to help with stress/anx iety- she declines psychiatry referral today Migraine 62898844 G43.90 9 on amlodipine on Ubrelvy for abortive therapy -she is aware of side effects, risks, and benefits Hyperlipidemia 90358655 E78.5 diet controlled Family his tory of Cardiovascular disease 014959514 Z82.49 is s/p workup with Dr. Corbett Cyst of thyroid 62461311 E04.1 due for repeat u/s 01/2023 Gastroesop hageal reflux disease 505677187 K21.9 restart protonix, she is aware of side effects, risks, benefitsTa ke p.r.n. if ableAcid reduction lifestyle measures discussed Prediabetes 819281008 R7 3.03 no meds, working on lifestyle Overweight 304796123 E66 .3 recommend healthy, well balanced mealsfocus on lean meats, fresh vegetables , fresh fruits, whole grainsredu ce fast/proce ssed foods or eating out to no more than 1-2 times per weekaim to get 30 min of exercise most days of the week- walking is a great choicealso recommend resistance training 2-3 times per week Arthritis 8835500 M19.90 On meloxicam p.r.n.-she is aware of side effects, risks, and benefitsSh e knows to take this only p.r.n. and with food [id number] Anna zapata MD [facility] Internal Med [facility] [address] [facility] [address] 1 08/22/2023 16:44:19 08/22/2023 17:39:12 Screening - NAD 406095565 Z13.9 C-scope: 2018: Dr Brumfield [facility], next in 10 years Mammogram/ DEXA: Get thisPAP: Sees Dr Vail on OCs Get yearly flu shotGet tdap if not doneCan do PCV #20Get shingrix vaccineGet COVID 19 vaccine and its boosters RTC in 3 months, do labs, ER if worse, she did verbalize her understand ing of the above Screening mammography 24 261712 Z12.31 Screening for osteoporosis 658806715 Z13.820 Gynecologi c examination 63837628 Z01.419 Mixed anxi ety and depressive disorder 639504931 F41.8 On citalopram 40mg dailyOn xanax from her OBOn buspirone 10mg bid Not suicidal or homicidalD oes not want to see psychiatry at this time Migraine 82359175 G43.90 9 On amlodipine 2.5mg dailyOn ubrelvyDoe s well Hyperlipidemia 33280859 E78.5 Get labs Gastroesop hageal reflux disease without esophagitis 760050019 K21.9 On pantoprazo le, take this PRN, will d/c thisStart on nexium 40mg dailyGet an EGD done Essential hypertension 40875329 I10 On amlodipine originally given by Dr Corbett [facility] for HTN but it helps her migraines, will refer to Dr Corbett [id number] Anna zapata MD [facility] Internal Med [facility] [address] [facility] [address] 02/27/2024 09:55:50 02/27/2024 10:53:31 Screening - NAD 937403707 Z13.9 C-scope: 2018: Dr Octaviano work[facility], next in 10 years-tno pe: 08/23/2023 : Dr Octaviano workman Mammogram: 09/14/2023 : Neg DEXA: 09/14/2023 : Osteopenia , more calcium and vit d PAP: Sees Dr Vail on OCs Get yearly flu shotGet tdap if not doneCan do PCV #20Get shingrix vaccineGet COVID 19 vaccine and its boosters RTC in 6 months as per her wishes, do labs, ER if worse, she did verbalize her understand ing of the above Screening for osteoporosis 377190305 Z13.820 Gynecologi c examination 44033463 Z01.419 Mixed anxi ety and depressive disorder 493718249 F41.8 On citalopram 40mg dailyOn xanax from her OBOn buspirone 10mg bid Not suicidal or homicidalD oes not want to see psychiatry at this time Migraine 36761863 G43.90 9 On amlodipine 2.5mg dailyOn ubrelvyDoe s well Hyperlipidemia 54814842 E78.5 Get labs Gastroesop hageal reflux disease without esophagitis 123687946 K21.9 On pantoprazo le, take this PRN, will d/c thisStart on nexium 40mg dailyGet an EGD done Essential hypertension 99880831 I10 On amlodipine originally given by Dr Corbett [facility] for HTN but it helps her migraines, will refer to Dr Corbett Pain of le ft knee joint 0811518899 22385 M25.562 Get a referral to Dr Sifuentes Pain in left foot 535281 8957 09409 M79.672 Get a referral to podiatry Screening for malignant neoplasm of colon 711095002 Z12.11 History of thyroidectomy 386685670 Z90.09 Wants to get an US thyroid, ordered 02/27/2024 [id number] Anna zapata MD [facility] [facility] [place] [address] [place] [address] 08/20/2024 10:01:33 08/20/2024 10:43:05 Screening - NAD 071479795 Z13.9 C-scope: 2018: Dr Octaviano workman [facility], next in 10 yearsC-sco pe: 08/23/2023 : Dr Octaviano workman Mammogram: 09/14/2023 : Neg DEXA: 09/14/2023 : Osteopenia , more calcium and vit d PAP: Sees Dr Vail on OCs Get yearly flu shotGet tdap if not doneCan do prevnar #20Get shingrix vaccineGet COVID 19 vaccine and its boosters RTC in 6 months as per her wishes, do labs, ER if worse, she did verbalize her understand ing of the above Screening for osteoporosis 242798479 Z13.820 Gynecologi c examination 71649052 Z01.419 Mixed anxi ety and depressive disorder 295835433 F41.8 On citalopram 40mg daily, filled by Dr Vail her OBOn xanax from her OBOn buspirone 10mg bid renewed 08/15/2024 Not suicidal or homicidalD oes not want to see psychiatry at this time Migraine 07940253 G43.90 9 On amlodipine 2.5mg dailyOn ubrelvyDoe s well Hyperlipidemia 23208533 E78.5 On rosuvastat in 40mg dailyGet labs Gastroesop hageal reflux disease without esophagitis 301666508 K21.9 On pantoprazo le, take this PRN, will d/c thisOn nexium 40mg dailyGet an EGD done referred again 08/20/2024 Essential hypertension 21693635 I10 On amlodipine originally given by Dr Corbett [facility] for HTN but it helps her migraines, will refer to Dr Corbett again Pain of le ft knee joint 3342904769 53259 M25.562 Get a referral to Dr Sifuentes Pain in left foot 941687 2924 63267 M79.672 Get a referral to podiatry History of thyroidectomy 804053571 Z90.09 US thyroid 04/10/2024 : Next in one year Screening mammography 24 269650 Z12.31 Health Concerns Section Related Observation LastModified by Organization Lucy haro LastModified Time None Recorded Concern Status LastModified by Organization Details LastModified Time None Recorded Advance Directives Directive N: Payers Encounter Date Sequence Insurance Name Policy Number Policy Ruvalcaba Covered Member ID Ruvalcaba Member ID Guarantor Name 10/03/[address] [place] [id number] Rosamaria Ortez [id number] Rosamaria Ortez 10/03/2022 2 [place] Rosamaria Ortez [id number] Rosamaria Ortez 02/07/2023 2 [facility] [id number] Rosamaria Ortez [id number] Rosamaria Otrez 08/22/2023 2 [facility] [id number] Rosamaria Ortez [id number] Rosamaria Ortez 02/27/2024 2 [facility] [id number] Rosamaria Ortez [id number] Rosamaria Ortez 02/27/2024 1 [place] Rosamaria Ortez [id number] Rosamaria Ortez 08/20/2024 1 [employer] (MEDICARE REPLACEMENT PPO) [id number] 1 Rosamaria Ortez [id number] Rosamaria Ortez Notes Date Note Type Note Provider Name and Address Organization Details Recorded Time 10/03/2022 text/html Georgie presents today for follow up. Her father unexpectedly 2 weeks ago. She has a lot of support with her family and friends. She feels like she is coping okay. Right now she is not interested in seeing the counselor or the grief counselor. She feels like her current dose of mood medication is working well for her. She denies any SI or HI today. Migraines have been well controlled on the amlodipine. She is also using ubrelvy prn which is working well when she does have a migraine. She complains today of some sinus congestion and runny nose. It has been worse with the weather change. She is not currently taking anything for her allergies at this time. Jany Ceja, RADIAL ARM SAW OPERATOR-C [address] [facility] [address], [place], [address], [facility] [employer] [facility] 10/03/2022 17:24:23 02/07/2023 text/html Georgie presents today for follow up. She feels like she is starting to heal from the loss of her father. Last visit, I had recommended she consider grief therapy. She did not go but she is thinking about maybe going with her son who is still struggling. She feels like her medicines are good dose for her. She feels like her mood is well controlled on them. She denies any SI or HI today. Migraines are well controlled on her current medications. She reports she has been walking every day to try to get some exercise and help with the prediabetes. She has been having more GERD symptoms lately. She had stopped the pantoprazole but she plans to restarted she does have some at home. She denies any abdominal pain, nausea vomiting, or blood in the stool or dark tarry stools. She is due for her annual thyroid ultrasound. Jany Ceja, RADIAL ARM SAW OPERATOR-C [address], [facility] [address], [place], [address], [employer] [facility] [employer] 02/07/2023 17:01:37 08/22/2023 text/html OV 08/22/2023:He re to establish care Past Hx:HLDMigraineGERD Here to discuss above and get labs, she feels that he heartburn is not better, she also wants a refill on her buspirone Anna Lanza MD [address], [facility] [address], [place], [address], [employer] 08/22/2023 17:37:33 02/27/2024 text/html OV 08/22/2023:He re to establish care Past Hx:HLDMigraineGERD Here to discuss above and get labs, she feels that he heartburn is not better, she also wants a refill on her buspirone OV 02/27/2024: Here for her f/u apt, she is doing well today, no new labs, has not yet seen cardiology d/t insurance issues, she also c/o L knee and L foot pain Anna Lanza MD [address], [facility] [address], [place], [address], [employer] 02/27/2024 10:59:33 08/20/2024 text/html OV 08/22/2023:He re to establish care Past Hx:HLDMigraineGERD Here to discuss above and get labs, she feels that he heartburn is not better, she also wants a refill on her buspirone OV 02/27/2024: Here for her f/u apt, she is doing well today, no new labs, has not yet seen cardiology d/t insurance issues, she also c/o L knee and L foot pain OV 08/20/2024: Here for her f/u apt, she is doing well today, no new labs, she has not seen cardiology as she states that she has been taking care of her mother Dilciabenny Lanza MD [address] [place] [address], [facility] [address], [place], [address], [place] [facility] 08/20/2024 10:40:48 OBGyn Episode No OBEpisode recorded.
[2024-09-24 09:53] VITALS: BP 139/87; PULSE 77; RESP 16; TEMP 36.6; O2SAT 97
[2024-09-24] MEDS: LACTATED RINGERS 1,000 ML 150 ML IV CONT (10:01)
--- NOTE | 2024-09-24 10:35 | WPDANESEPPF ---
Anes - Initial Pre Proc Eval Procedure: Operation Date: 09/24/24 11:15 Proposed Procedures p Esophagogastroduodenoscopy - Darrell Clark MD Date/Time: 09/24/24 10:35 Surgeon: Darrell Clark MD Pre Op Diagnosis: GERD Patient Data Age: 69 Gender: F Height: 1.73 m Weight: 90.3 kg Last Vital Signs Temp 36.6 C 09/24/24 09:53 Pulse 77 09/24/24 09:53 Resp 16 09/24/24 09:53 BP 139/87 09/24/24 09:53 Pulse Ox 97 09/24/24 09:53 O2 Del Method Room Air 09/24/24 09:53 Allergies Allergy/AdvReac Type Severity Reaction Status Date / Time allantoin Allergy Mild Rash Verified 09/24/24 09:51 cefaclor Allergy Mild Rash Verified 09/24/24 09:51 homosalate Allergy Mild Rash Verified 09/24/24 09:51 menthol Allergy Mild Rash Verified 09/24/24 09:51 octinoxate Allergy Mild Rash Verified 09/24/24 09:51 octyl salicylate Allergy Mild Rash Verified 09/24/24 09:51 oxybenzone Allergy Mild Rash Verified 09/24/24 09:51 padimate O Allergy Mild Rash Verified 09/24/24 09:51 phenol Allergy Mild Rash Verified 09/24/24 09:51 aloe vera Allergy Unknown Rash Verified 09/24/24 09:51 Cephalosporins Allergy Unknown Rash Verified 09/24/24 09:51 petrolatum,white Allergy Unknown Rash Verified 09/24/24 09:51 ALOE VERA EXTRACT Allergy Mild Rash Uncoded 09/24/24 09:51 CAMPHOR Allergy Mild Rash Uncoded 09/24/24 09:51 CEPHALEXIN MONOHYDRATE Allergy Mild Rash Uncoded 09/24/24 09:51 CHAMOMILE WOODSON Allergy Mild Rash Uncoded 09/24/24 09:51 DIMETHICONE Allergy Mild Rash Uncoded 09/24/24 09:51 HERBAL COMPLEX NO.57 Allergy Mild Rash Uncoded 09/24/24 09:51 MERADIMATE Allergy Mild Rash Uncoded 09/24/24 09:51 PETROLATUM,HYDROPHILIC Allergy Mild Rash Uncoded 09/24/24 09:51 Home Medications ?Medication ?Instructions ?Recorded ?Confirmed ?Type amlodipine 2.5 mg tablet 2.5 mg PO DAILY 09/16/24 09/24/24 History buspirone 10 mg tablet 10 mg PO DAILY 09/16/24 09/24/24 History citalopram 20 mg tablet 40 mg PO DAILY 09/16/24 09/24/24 History esomeprazole magnesium 40 mg 40 mg PO DAILY 09/16/24 09/24/24 History capsule,delayed release estradiol 1 mg tablet 1 mg PO DAILY 09/16/24 09/24/24 History medroxyprogesterone 2.5 mg tablet 2.5 mg PO DAILY 09/16/24 09/24/24 History rosuvastatin 40 mg tablet 40 mg PO DAILY 09/16/24 09/16/24 History valacyclovir 1 gram tablet 1,000 mg PO DAILY PRN fever blister 09/16/24 09/16/24 History Patient hx anesthesia problems: post op nausea/vomiting Family hx anesthesia problems: none Results Review: All pre-operative results and documents have been reviewed as part of the pre-operative evaluation. [facility] Social History Social History Smoking status: Never smoker Substance use type: does not use Living arrangements: with family Spiritual care concerns: No Anes - Eval Final PreProcedure Day of Procedure 09/24/24 10:35 Patient weight: obese Heart: regular rate and rhythm Lungs: clear to auscultation Airway: Mallampati scale class II Neurological: alert and oriented Last oral intake: >/= 8 hours ASA classification: III Emergent: no Anesthetic plan: proceed Anesthesia type and monitoring: general GIVS and standard monitoring Results Review: All pre-operative results and documents have been reviewed as part of the pre-operative evaluation. Informed Consent: The patient's anesthetic plan and its attendant risks and benefits were discussed with the patient/family/POA. Questions were solicited and answers provided to the satisfaction of the patient/family/POA.
--- NOTE | 2024-09-24 10:46 | PM.HPGS ---
History of Present Illness History of Present Illness Consent: Risks, benefits, and alternatives have been discussed and questions answered. Patient agrees to proceed with procedure. Chief complaint: GERD Narrative: Rosamaria Ortez is a 69 year old female here for first EGD, h/o intermittent non cardiac chest pain, also belching after drinking soda, esomeprazole helping some but using prn Review of Systems Review of Systems: All systems reviewed & are unremarkable except as noted in HPI and below PMFSH Past Medical History Medical History (Updated 09/24/24 @ 10:48 by Darrell Clark MD) Non-cardiac chest pain Social History Social History Smoking status: Never smoker Substance use type: does not use Living arrangements: with family Spiritual care concerns: No Meds Home Medications and Allergies Home Medications ?Medication ?Instructions ?Recorded ?Confirmed ?Type amlodipine 2.5 mg tablet 2.5 mg PO DAILY 09/16/24 09/24/24 History buspirone 10 mg tablet 10 mg PO DAILY 09/16/24 09/24/24 History citalopram 20 mg tablet 40 mg PO DAILY 09/16/24 09/24/24 History esomeprazole magnesium 40 mg 40 mg PO DAILY 09/16/24 09/24/24 History capsule,delayed release estradiol 1 mg tablet 1 mg PO DAILY 09/16/24 09/24/24 History medroxyprogesterone 2.5 mg tablet 2.5 mg PO DAILY 09/16/24 09/24/24 History rosuvastatin 40 mg tablet 40 mg PO DAILY 09/16/24 09/16/24 History valacyclovir 1 gram tablet 1,000 mg PO DAILY PRN fever blister 09/16/24 09/16/24 History Allergies Allergy/AdvReac Type Severity Reaction Status Date / Time allantoin Allergy Mild Rash Verified 09/24/24 09:51 cefaclor Allergy Mild Rash Verified 09/24/24 09:51 homosalate Allergy Mild Rash Verified 09/24/24 09:51 menthol Allergy Mild Rash Verified 09/24/24 09:51 octinoxate Allergy Mild Rash Verified 09/24/24 09:51 octyl salicylate Allergy Mild Rash Verified 09/24/24 09:51 oxybenzone Allergy Mild Rash Verified 09/24/24 09:51 padimate O Allergy Mild Rash Verified 09/24/24 09:51 phenol Allergy Mild Rash Verified 09/24/24 09:51 aloe vera Allergy Unknown Rash Verified 09/24/24 09:51 Cephalosporins Allergy Unknown Rash Verified 09/24/24 09:51 petrolatum,white Allergy Unknown Rash Verified 09/24/24 09:51 ALOE VERA EXTRACT Allergy Mild Rash Uncoded 09/24/24 09:51 CAMPHOR Allergy Mild Rash Uncoded 09/24/24 09:51 CEPHALEXIN MONOHYDRATE Allergy Mild Rash Uncoded 09/24/24 09:51 CHAMOMILE WOODSON Allergy Mild Rash Uncoded 09/24/24 09:51 DIMETHICONE Allergy Mild Rash Uncoded 09/24/24 09:51 HERBAL COMPLEX NO.57 Allergy Mild Rash Uncoded 09/24/24 09:51 MERADIMATE Allergy Mild Rash Uncoded 09/24/24 09:51 PETROLATUM,HYDROPHILIC Allergy Mild Rash Uncoded 09/24/24 09:51 Vital Signs Vital Signs - 24 hr 09/24/24 09:53 Temperature 97.8 F Pulse Rate 77 Respiratory Rate 16 Blood Pressure 139/87 Pulse Oximetry 97 Oxygen Delivery Room Air Exam Const: General: comfortable and no acute distress HENMT: Face/Nose/Sinus: Normal nares present Eyes: General: appearance normal, both eyes and all related structures Neck: Neck: no JVD Resp: Auscultation: clear to auscultation bilaterally Cardio: Rate: regular rate Rhythm: regular rhythm GI: Inspection: non-distended GI Palp: Yes Soft to palpation Skin: General skin exam: normal color Neuro: Speech: normal speech Extrem: General: normal to inspection Psych: Mental Status: mental status grossly normal Assessment and Plan Assessment and plan (1) Non-cardiac chest pain: Code(s): R07.89 - Other chest pain Status: Acute Assessment and Plan: egd with bx
[2024-09-24 11:00] VITALS: BP 117/74; PULSE 68; RESP 19; O2SAT 100
[2024-09-24 11:10] VITALS: BP 126/78; PULSE 64; RESP 21; O2SAT 100
[2024-09-24 11:20] VITALS: BP 133/84; PULSE 69; RESP 19; O2SAT 100
== END 2024-09-24 11:34 | disposition home or self-care (01) ==
PROVIDERS: PCP Internal Medicine; Referring Provider Internal Medicine; Visit Provider Internal Medicine Gastroenterology
PROC: 0DJ08ZZ Inspection of Upper Intestinal Tract, Via Natural or Artificial Opening Endoscopic (ICD-10-PCS; CPT 43239; principal; 2024-09-24 11:15)
DX: R07.89 Other chest pain (principal); R14.2 Eructation
CPT/HCPCS: 43239; 88305; 88342; J2704; J7120